=== PATIENT | female | born 1995 | race Caucasian/White ===

== ENCOUNTER 2016-09-10 10:52 | Emergency (ER) | payer OTHER ==
[2016-09-10 13:09] VITALS: BP 89/68
--- NOTE | 2016-09-10 13:26 | UC ---
UC General HPI - HPI Summary HPI Summary: patient has body aches, chills and cough, overall malaise for 5 days - History of Current Complaint Chief Complaint: UCRespiratory Stated Complaint: COUGH, BODY ACHES Time Seen by Provider: 09/10/16 13:10 Hx Obtained From: Patient Onset/Duration: Sudden Onset, Lasting Days Timing: Constant Onset Severity: Mild Current Severity: Moderate Pain Intensity: 6 Associated Signs & Symptoms: Positive: Cough, Headache - Allergy/Home Medications Allergies/Adverse Reactions: Allergies Allergy/AdvReac Type Severity Reaction Status Date / Time No Known Allergies Allergy Verified 09/10/16 13:03 Home Medications: Home Medications Naproxen Sodium 220 mg PO ONCE PRN 09/10/16 [History Confirmed 09/10/16] PMH/Surg Hx/FS Hx/Imm Hx Previously Healthy: Yes Endocrine History Of: Denies: Diabetes GI/ History Of: Denies: Renal Disease - PT denies history of stones - Surgical History Surgical History: None - Family History Known Family History: Positive: None, Other - mother with arthritis Negative: Cardiac Disease, Hypertension, Diabetes - Social History Alcohol Use: None Substance Use Type: None Smoking Status (MU): Never Smoked Tobacco - Immunization History Most Recent Influenza Vaccination: not this season Review of Systems Constitutional: Chills, Fatigue Skin: Negative Eyes: Negative ENT: Sore Throat, Nasal Discharge Respiratory: Cough Cardiovascular: Negative Gastrointestinal: Negative Genitourinary: Negative Motor: Negative Musculoskeletal: Arthralgia, Myalgia Neurological: Headache Psychological: Negative All Other Systems Reviewed And Are Negative: Yes Physical Exam Triage Information Reviewed: Yes Appearance: Well-Nourished, Ill-Appearing, Pain Distress Vital Signs: Initial Vital Signs Temp 97.7 F 09/10/16 13:05 Pulse 110 09/10/16 13:05 Resp 18 09/10/16 13:05 BP 89/68 09/10/16 13:05 Pulse Ox 99 09/10/16 13:05 Vital Signs Reviewed: Yes Eye Exam: Normal Eyes: Positive: Conjunctiva Clear ENT Exam: Normal ENT: Positive: Pharyngeal erythema, Nasal congestion, Nasal drainage, TM red Dental Exam: Normal Neck exam: Normal Neck: Positive: Supple, Nontender, No Lymphadenopathy Respiratory: Positive: Chest non-tender, No respiratory distress, No accessory muscle use, Wheezing, Inspiration Cardiovascular Exam: Normal Cardiovascular: Positive: RRR, No Murmur, Pulses Normal Abdominal Exam: Normal Abdomen Description: Positive: Nontender, No Organomegaly, Soft Bowel Sounds: Positive: Present Musculoskeletal Exam: Normal Musculoskeletal: Positive: Strength Intact, ROM Intact, No Edema Neurological Exam: Normal Neurological: Positive: Alert, Muscle Tone Normal Psychological Exam: Normal Skin Exam: Normal Course/Dx - Course Course Of Treatment: hx obtained, exam performed, rapid flu obtained, positive, medications prescribed. - Differential Dx - Multi-Symptom Provider Diagnoses: influenza A. cough. myalgia Discharge - Discharge Plan Condition: Stable Disposition: HOME Patient Education Materials: Influenza (ED) Forms: *School Release, *Work Release Additional Instructions: Increase your fluid intake and get plenty of rest. take the medication as prescribed.
== END 2016-09-10 13:59 | disposition home or self-care (01) ==
LOC: UCCORT 10:52
DX: J10.1 Influenza due to other identified influenza virus with other respiratory manifestations (principal); R05 Cough
CPT/HCPCS: 87502; 99212; G0463

== ENCOUNTER 2016-09-16 14:40 | Emergency (ER) | payer OTHER ==
[2016-09-16 15:13] VITALS: BP 115/77
--- NOTE | 2016-09-16 15:56 | RAD ---
HISTORY: Cough, right rib pain COMPARISONS: February 09, 2016 VIEWS: 2: Frontal dual-energy and lateral views of the chest. FINDINGS: CARDIOMEDIASTINAL SILHOUETTE: The cardiomediastinal silhouette is normal. HANNAH: The hannah are normal. PLEURA: The costophrenic angles are sharp. No pleural abnormalities are noted. LUNG PARENCHYMA: The lungs are clear. ABDOMEN: The upper abdomen is clear. There is no subphrenic gas. BONES AND SOFT TISSUES: No bone or soft tissue abnormalities are noted. OTHER: None. IMPRESSION: NO ACTIVE CARDIOPULMONARY DISEASE.
--- NOTE | 2016-09-16 16:09 | UC ---
Respiratory Complaint HPI - HPI Summary HPI Summary: cough which is causing severe point tenderness right lower lateral ribcage. Cough will sometimes wake her at night. Hard to work due to coughing fits. Usually dry, sometimes coughs up phlegm. Did have influenza 6 days ago. No vomiting. No fevers. No body aches. Worried about the rib pain as far as a fracture or pneumonia. - History of Current Complaint Chief Complaint: UCAbdominalPain Stated Complaint: RIB PAIN Time Seen by Provider: 09/16/16 15:16 Hx Obtained From: Patient, Family/Minesweeping Officer Hx Last Menstrual Period: 09/11/16 ?: No Onset/Duration: Gradual Onset, Lasting Days - 6 Timing: Constant Severity Initially: Mild Severity Currently: Moderate Character: Sputum Description: - yellowish in AM Aggravating Factors: Exertion, Recumbent Position Alleviating Factors: Nothing Associated Signs And Symptoms: Positive: Pleuritic Chest Pain - right lateral ribcage. Negative: Dyspnea, Fever, Chills, Hemoptysis, Dizziness, URI, Nasal Congestion, Hoarseness, Sinus Discomfort - Risk Factors Pulmonary Embolism Risk Factors: Negative Cardiac Risk Factors: Negative Pseudomonas Risk Factors: Negative Tuberculosis Risk Factors: Negative - Allergies/Home Medications Allergies/Adverse Reactions: Allergies Allergy/AdvReac Type Severity Reaction Status Date / Time No Known Allergies Allergy Verified 09/16/16 15:13 PMH/Surg Hx/FS Hx/Imm Hx Previously Healthy: Yes Endocrine History Of: Denies: Diabetes GI/ History Of: Denies: Renal Disease - PT denies history of stones - Surgical History Surgical History: None - Family History Known Family History: Positive: None, Other - mother with arthritis Negative: Cardiac Disease, Hypertension, Diabetes - Social History Occupation: Employed Full-time Lives: With Family Alcohol Use: None Substance Use Type: None Smoking Status (MU): Never Smoked Tobacco - Immunization History Most Recent Influenza Vaccination: not this season Review of Systems Constitutional: Negative Skin: Negative Eyes: Negative ENT: Negative Respiratory: Cough, Other - pleuritic pain Cardiovascular: Negative Gastrointestinal: Negative Genitourinary: Negative Motor: Negative Neurovascular: Negative Musculoskeletal: Negative Neurological: Negative Psychological: Negative All Other Systems Reviewed And Are Negative: Yes Physical Exam Triage Information Reviewed: Yes Appearance: Well-Appearing, No Pain Distress, Well-Nourished, Thin Vital Signs: Initial Vital Signs Temp 98.0 F 09/16/16 15:07 Pulse 90 09/16/16 15:07 Resp 16 09/16/16 15:07 BP 115/77 09/16/16 15:07 Pulse Ox 96 09/16/16 15:07 Vital Signs Reviewed: Yes Eye Exam: Normal ENT Exam: Normal ENT: Positive: Pharynx normal, TMs normal. Negative: Tonsillar swelling, Tonsillar exudate, Trismus, Muffled/hoarse voice Neck exam: Normal Respiratory Exam: Normal Respiratory: Positive: Lungs clear, Normal breath sounds, No respiratory distress, No accessory muscle use, Other: - point tenderness right lateral lower ribcage. NO bruising or swelling. No crepitus Cardiovascular Exam: Normal Abdominal Exam: Normal Musculoskeletal Exam: Normal Neurological Exam: Normal Psychological Exam: Normal Skin Exam: Normal UC Diagnostic Evaluation - Laboratory O2 Sat by Pulse Oximetry: 96 Diagnostic Studies Comment: CXR normal Respiratory Course/Dx - Differential Dx/Diagnosis Provider Diagnoses: post-viral cough Discharge - Discharge Plan Condition: Stable Disposition: HOME Prescriptions: Benzonatate CAP* [Tessalon CAP*] 100 mg PO TID PRN #30 cap PRN Reason: Cough Patient Education Materials: Acute Cough (ED) Referrals: Wayne Feliz MD [Primary Care Provider] - Additional Instructions: You probably cracked a rib, or injured the area where the rib becomes cartilage. This will heal without any treatment. Try heat. You can also wrap the area with a rib belt or back brace, and that will help with pain. Icy Hot or Adrian Carbone rubs can be helpful. The Tessalon perles will help to suppress the cough a bit. The cough after influenza can drag on several weeks. It's only of concern if you start running a fever over 100.5, or vomiting, or generally feeling worse and worse as time goes on.
== END 2016-09-16 16:15 | disposition home or self-care (01) ==
LOC: UCCORT 14:40
DX: R05 Cough (principal)
CPT/HCPCS: 71020; 99211; G0463

== ENCOUNTER 2017-02-15 10:55 | Emergency (ER) | payer OTHER ==
--- NOTE | 2017-02-15 11:41 | UC ---
Abdominal Pain Female HPI - History of Current Complaint Chief Complaint: UCGeneralIllness Stated Complaint: ANXIETY OR POSSIBLE MEDICATION REACTION Time Seen by Provider: 02/15/17 11:31 Hx Obtained From: Patient Hx Last Menstrual Period: 01/23/17 Onset/Duration: Sudden Onset - nausea with some vomiting night and thursday morning. Diarrhea th and last night., Still Present - Very anxious. Trouble sleeping. Severity Initially: Moderate Severity Currently: Moderate Aggravating Factor(s): Food Alleviating Factor(s): Nothing Associated Signs and Symptoms: Positive: Dizzy, Nausea, Vomiting, Diarrhea. Negative: Diaphoresis, Fever - Risk Factors Ovarian Torsion Risk Factor: Reproductive Age Allergies/Adverse Reactions: Allergies Allergy/AdvReac Type Severity Reaction Status Date / Time No Known Allergies Allergy Verified 02/15/17 11:29 PMH/Surg Hx/FS Hx/Imm Hx Psychological History: Anxiety - Surgical History Surgical History: None - Family History Known Family History: Positive: Other - mother with arthritis and anxiety Negative: Cardiac Disease, Hypertension, Diabetes - Social History Occupation: Employed Full-time Lives: With Family Alcohol Use: None Substance Use Type: None Smoking Status (MU): Never Smoked Tobacco - Immunization History Most Recent Influenza Vaccination: not this season Review of Systems Respiratory: Shortness Of Breath - with panic attack last night. Gastrointestinal: Vomiting, Diarrhea Psychological: Anxious All Other Systems Reviewed And Are Negative: Yes Physical Exam Triage Information Reviewed: Yes Appearance: Well-Appearing, No Pain Distress, Well-Nourished Vital Signs: Initial Vital Signs Temp 99.1 F 02/15/17 11:30 Pulse 104 02/15/17 11:30 Resp 16 02/15/17 11:30 BP 116/84 02/15/17 11:30 Pulse Ox 98 02/15/17 11:30 Vital Signs Reviewed: Yes Eyes: Positive: Conjunctiva Clear ENT: Positive: Pharynx normal, TMs normal Neck exam: Normal Respiratory Exam: Normal Cardiovascular Exam: Normal Abdomen Description: Positive: Nontender, No Organomegaly, Soft Bowel Sounds: Positive: Present Musculoskeletal Exam: Normal Neurological Exam: Normal Psychological: Positive: Inconsolable - crying with anxiety, Other: - Anxious. Skin Exam: Normal Abd Pain Female Course/Dx - Differential Dx/Diagnosis Differential Diagnosis: Appendicitis, Constipation, Diverticulitis Provider Diagnoses: Acute viral enteritis. Anxiety, generalized Discharge - Discharge Plan Condition: Stable Disposition: HOME Prescriptions: Escitalopram (NF) [Lexapro 10 mg (NF)] 10 mg PO DAILY #30 tab OLANzapine TAB* [Zyprexa 2.5 MG TAB*] 2.5 mg PO BEDTIME #30 tab Ondansetron ODT TAB* [Zofran 4 MG Odt TAB*] 4 mg PO Q6H PRN #30 tab.odt PRN Reason: Nausea/Vomiting Patient Education Materials: Enteritis (ED), Ondansetron (By mouth), Anxiety ( ED), Escitalopram (By mouth), Olanzapine (By mouth) Forms: *Work Release Referrals: Wayne Feliz MD [Primary Care Provider] - 1 Week (Recheck on the anxiety and medication tolerance.)
[2017-02-15 12:22] VITALS: BP 116/84
== END 2017-02-15 12:28 | disposition home or self-care (01) ==
LOC: UCCORT 10:55
DX: F41.1 Generalized anxiety disorder (principal); A08.4 Viral intestinal infection, unspecified
CPT/HCPCS: 99212; G0463

== ENCOUNTER 2017-03-19 20:58 | Emergency (ER) | payer OTHER ==
[2017-03-19 21:13] VITALS: BP 107/71
--- NOTE | 2017-03-19 21:17 | UC ---
Respiratory Complaint HPI - HPI Summary HPI Summary: 22 YEAR OLD FEMALE PRESENTS WITH COMPLAINS OF COUGH. - History of Current Complaint Chief Complaint: UCRespiratory Stated Complaint: COUGH Time Seen by Provider: 03/19/17 21:14 Hx Obtained From: Patient Hx Last Menstrual Period: 03/19/17 Onset/Duration: Sudden Onset Severity Initially: Moderate Severity Currently: Moderate Pain Scale Used: 0-10 Numeric - 5 Character: Cough: Productive - Allergies/Home Medications Allergies/Adverse Reactions: Allergies Allergy/AdvReac Type Severity Reaction Status Date / Time No Known Allergies Allergy Verified 03/19/17 21:13 Home Medications: Home Medications Benzonatate CAP* [Tessalon 100 MG CAP*] 100 mg PO TID 03/19/17 [History Confirmed 03/19/17] PMH/Surg Hx/FS Hx/Imm Hx Previously Healthy: Yes - Surgical History Surgical History: None - Family History Known Family History: Positive: None, Other - mother with arthritis and anxiety Negative: Cardiac Disease, Hypertension, Diabetes - Social History Alcohol Use: None Substance Use Type: None Smoking Status (MU): Never Smoked Tobacco - Immunization History Most Recent Influenza Vaccination: not this season Review of Systems Constitutional: Negative Skin: Negative Eyes: Negative ENT: Sore Throat, Nasal Discharge, Sinus Congestion, Sinus Pain/Tenderness Respiratory: Negative Cardiovascular: Negative Gastrointestinal: Negative Genitourinary: Negative Motor: Negative Neurovascular: Negative Musculoskeletal: Negative Neurological: Negative Psychological: Negative All Other Systems Reviewed And Are Negative: Yes Physical Exam Triage Information Reviewed: Yes Vital Signs: Initial Vital Signs Temp 37.1 C 03/19/17 21:08 Pulse 86 03/19/17 21:08 Resp 16 03/19/17 21:08 BP 107/71 03/19/17 21:08 Pulse Ox 97 03/19/17 21:08 Eye Exam: Normal ENT: Positive: Pharyngeal erythema, Nasal congestion, Nasal drainage Dental Exam: Normal Neck exam: Normal Neck: Positive: 1 Respiratory Exam: Normal Cardiovascular Exam: Normal Abdominal Exam: Normal Musculoskeletal Exam: Normal Neurological Exam: Normal Psychological Exam: Normal Skin Exam: Normal UC Diagnostic Evaluation - Laboratory O2 Sat by Pulse Oximetry: 97 Respiratory Course/Dx - Differential Dx/Diagnosis Provider Diagnoses: ALLERGIC RHINNITIS. POST NASAL DRIP Discharge - Discharge Plan Condition: Stable Disposition: HOME Prescriptions: Amoxicillin PO (*) [Amoxicillin 500 MG CAP*] 500 mg PO TID #30 cap Benzonatate [TESSALON 200 MG CAP] 200 mg PO TID PRN #30 cap PRN Reason: Cough LoraTADine TAB(NF) [Claritin 10 MG TAB(NF)] 10 mg PO DAILY #30 tab guaiFENesin/CODIEN 100MG-10MG* [Robitussin AC 100Mg-10Mg*] 5 ml PO Q6H PRN #120 ml MDD 20 PRN Reason: Cough Patient Education Materials: Allergic Rhinitis (ED) Referrals: Chanelle Waite NP [Primary Care Provider] -
--- NOTE | 2017-03-19 21:52 | RAD ---
INDICATION: Cough. COMPARISON: Comparison is made with a prior chest x-ray study from September 16, 2016. TECHNIQUE: Dual-energy PA and lateral views of the chest were obtained. FINDINGS: The heart is within normal limits in size. Mediastinal and hilar contours appear within normal limits. The lungs are clear. No pleural effusion is present. IMPRESSION: NO EVIDENCE FOR ACTIVE CARDIOPULMONARY DISEASE.
[2017-03-19] MEDS ORDERED: LoraTADine TAB(NF) 10 MG TAB (AUTOSUB to CETIRIZINE) PO ONE (21:57)
[2017-03-19] MEDS ORDERED: guaiFENesin/CODIEN 100MG-10MG* 5 ML UDC PO ONE (21:57)
== END 2017-03-19 22:07 | disposition home or self-care (01) ==
LOC: UCCORT 20:58
DX: J30.9 Allergic rhinitis, unspecified (principal)
CPT/HCPCS: 71020; 99212; A9270-GY; G0463

== ENCOUNTER 2017-04-02 17:06 | Emergency (ER) | payer OTHER ==
[2017-04-02 17:11] VITALS: BP 125/76
[2017-04-02] MEDS ORDERED: Ketorolac INJ* 60 MG/2 ML VIAL IM ONE (17:20)
--- NOTE | 2017-04-02 17:47 | UC ---
Respiratory Complaint HPI - HPI Summary HPI Summary: right flank pain x 7 days paretic pain right side, increase pain with breathing and cough was seen 2 weeks ago for cough, cough is better, no fever, no chills, no sob - History of Current Complaint Chief Complaint: UCGeneralIllness Stated Complaint: SEVERE RIGHT SIDE PAIN Time Seen by Provider: 04/02/17 17:07 Hx Obtained From: Patient Hx Last Menstrual Period: 03/19/17 ?: No Onset/Duration: Gradual Onset, Lasting Days - 7, Still Present, Worse Since - today Severity Initially: Moderate Severity Currently: Severe Aggravating Factors: Deep Breaths Alleviating Factors: Nothing Associated Signs And Symptoms: Positive: Pleuritic Chest Pain. Negative: Fever , Chills, Wheezing, Hemoptysis, Dizziness, Calf Pain, Calf Swelling, Edema, URI , Nasal Congestion, Hoarseness, Sinus Discomfort - Allergies/Home Medications Allergies/Adverse Reactions: Allergies Allergy/AdvReac Type Severity Reaction Status Date / Time No Known Allergies Allergy Verified 04/02/17 17:11 Home Medications: Home Medications Cyclobenzaprine TAB* [Flexeril 10 MG TAB*] 10 mg PO BID PRN 04/02/17 [History Confirmed 04/02/17] Ibuprofen TAB* [Motrin TAB* 600 MG] 600 mg PO Q6H PRN 04/02/17 [History Confirmed 04/02/17] PMH/Surg Hx/FS Hx/Imm Hx Psychological History: Anxiety - Surgical History Surgical History: None - Family History Known Family History: Positive: None, Other - mother with arthritis and anxiety Negative: Cardiac Disease, Hypertension, Diabetes - Social History Alcohol Use: None Substance Use Type: None Smoking Status (MU): Never Smoked Tobacco - Immunization History Most Recent Influenza Vaccination: not this season Review of Systems Constitutional: Negative Skin: Negative Eyes: Negative ENT: Negative Respiratory: Negative Cardiovascular: Negative All Other Systems Reviewed And Are Negative: Yes Physical Exam Triage Information Reviewed: Yes Appearance: Well-Appearing, Well-Nourished, Pain Distress, Other: - pt. is crying due to pain Vital Signs: Initial Vital Signs Temp 99 F 04/02/17 17:06 Pulse 100 04/02/17 17:06 Resp 20 04/02/17 17:06 BP 125/76 04/02/17 17:06 Pulse Ox 100 08/31/17 17:06 Eyes: Positive: Conjunctiva Clear ENT: Positive: Normal ENT inspection, Hearing grossly normal, Pharynx normal Neck: Positive: Supple, Nontender, No Lymphadenopathy Respiratory: Positive: Chest non-tender, Lungs clear, Normal breath sounds Cardiovascular: Positive: No Murmur, Tachycardia Abdominal Exam: Normal Abdomen Description: Positive: Nontender, Soft. Negative: CVA Tenderness (R), CVA Tenderness (L), Distended, Guarding Bowel Sounds: Positive: Present UC Diagnostic Evaluation - Laboratory O2 Sat by Pulse Oximetry: 100 Respiratory Course/Dx - Differential Dx/Diagnosis Provider Diagnoses: pneumonia. pleurisy Discharge - Discharge Plan Condition: Stable Disposition: HOME Prescriptions: Levofloxacin TAB* [Levaquin TAB*] 500 mg PO DAILY #10 tab Naproxen [Naproxen 500 mg] 500 mg PO BID #20 tab Patient Education Materials: Pleurisy (ED), Pneumonia (ED) Referrals: Chanelle Waite, [employer] [Primary Care Provider] - 5 Days
--- NOTE | 2017-04-02 17:56 | RAD ---
Indication: Right flank pain. 2 views of the chest are reviewed and compared to previous exam dated March 19, 2017. No mediastinal shift is noted. Wedge-shaped deformity is noted in the periphery of the right upper lobe which was not present previously and this may represent pneumonia. IMPRESSION: Likely pneumonia in the right upper lobe.
== END 2017-04-02 18:10 | disposition home or self-care (01) ==
LOC: UCCORT 17:06
DX: J18.9 Pneumonia, unspecified organism (principal); R09.1 Pleurisy; F41.9 Anxiety disorder, unspecified
CPT/HCPCS: 71020; 96372; 99212; G0463; J1885

== ENCOUNTER 2017-04-19 07:05 | Emergency (ER) | payer OTHER ==
--- NOTE | 2017-04-19 08:30 | RAD ---
INDICATION: Cough, blood in sputum. COMPARISON: April 02, 2017 through February 08, 2017 radiographs. TECHNIQUE: Dual energy PA and routine lateral views of the chest were obtained. REPORT: Rounded region of airspace consolidation with suggestion of air bronchograms involving the superior segment of the RIGHT lower lobe versus posterior segment of the RIGHT upper lobe is increased in size compared with the April 02, 2017 exam and completely new compared with the March 19, 2017 exam. The lungs and pleural spaces are otherwise clear. Negative for pneumothorax. The heart, pulmonary vasculature, and mediastinal contours are unremarkable. IMPRESSION: The constellation of findings including completely new appearance of the RIGHT lung opacity compared with the March 19, 2017 exam is most consistent with rounded pneumonia. Radiographic follow-up to assess for resolution suggested. In absence of progressive improvement on follow-up radiographs following appropriate medical therapy would warrant contrast-enhanced CT for further assessment.
[2017-04-19] MEDS ORDERED: cefTRIAXone VIAL(*) 1,000 MG VIAL IM ONE (08:56)
[2017-04-19] MEDS ORDERED: Lidocaine 1% INJ* 10 MG/ML 30 ML SDV INJ ONE (08:56)
[2017-04-19] MEDS ORDERED: Lidocaine 1% MPF* 2 ML VIAL ONE (09:08)
[2017-04-19 10:13] VITALS: BP 126/70
--- NOTE | 2017-04-19 10:25 | UC ---
Respiratory Complaint HPI - HPI Summary HPI Summary: pt with complicated recent past medical hx p/w with coumplaint of cough with bloody sputum. p/t 09/19, pt had no significant pmh except for anxiety and depression. in 09/19 pt had both flu and a bout of gastroenteritis. she appeared to recover well from both. then in 03/19 pt developed a cough. pt was seen for cough and sinpt us sx. dx was allergic rhinnitis and post nasal drip. she was tx with amoxicillin, claritin and guaifenesin. on 04/02 pt returned with c/o pleuritic cp and was found ro have pleurisy and pna for which she was tx with levaquin. she finished the course of abx and seemed to be improving. however pt has had lingering cough and congestion. this morning as pt was coughing, she brought up bloody sputum and is concerned that she has pna again. she is very anxious about her health. - History of Current Complaint Chief Complaint: UCRespiratory Stated Complaint: COUGH Time Seen by Provider: 04/19/17 07:15 Hx Obtained From: Patient Hx Last Menstrual Period: 04/16/17 ?: No Onset/Duration: Gradual Onset, Lasting Weeks, Worse Since - this morning Severity Initially: Moderate Severity Currently: Moderate Pain Intensity: 0 Pain Scale Used: 0-10 Numeric Character: Cough: Productive, Sputum Description: - yellow, bloody Aggravating Factors: Allergens, Exertion, Deep Breaths Alleviating Factors: Nothing Associated Signs And Symptoms: Positive: Hemoptysis, Nasal Congestion. Negative : Dyspnea, Fever, Chills, Pleuritic Chest Pain, Wheezing, Dizziness, Calf Pain, Calf Swelling, Edema, Hoarseness, Sinus Discomfort Related History: Seasonal Allergies - Allergies/Home Medications Allergies/Adverse Reactions: Allergies Allergy/AdvReac Type Severity Reaction Status Date / Time No Known Allergies Allergy Verified 04/23/17 18:31 Home Medications: Home Medications Naproxen [Naproxen 500 mg] 500 mg PO BID PRN 04/19/17 [History Confirmed ] PMH/Surg Hx/FS Hx/Imm Hx Previously Healthy: No - pt has been ill off and on since 09/19 Respiratory History: Pneumonia Psychological History: Anxiety - Surgical History Surgical History: None - Family History Known Family History: Positive: None, Other - mother with arthritis and anxiety Negative: Cardiac Disease, Hypertension, Diabetes - Social History Occupation: Employed Part-time, Student Lives: With Family Alcohol Use: None Substance Use Type: None Smoking Status (MU): Never Smoked Tobacco - Immunization History Most Recent Influenza Vaccination: Not the Season Review of Systems Constitutional: Negative Skin: Negative Eyes: Negative ENT: Nasal Discharge Respiratory: Cough Cardiovascular: Negative Gastrointestinal: Negative Genitourinary: Negative Motor: Negative Neurovascular: Negative Musculoskeletal: Negative Neurological: Negative Psychological: Anxious All Other Systems Reviewed And Are Negative: Yes Physical Exam Triage Information Reviewed: Yes Appearance: Well-Appearing, No Pain Distress, Well-Nourished Vital Signs: Initial Vital Signs Temp 99.1 F 04/19/17 07:18 Pulse 106 04/19/17 07:18 Resp 16 04/19/17 07:18 BP 123/89 04/19/17 07:18 Pulse Ox 100 04/19/17 07:18 Vital Signs Reviewed: Yes Eyes: Positive: Conjunctiva Clear. Negative: Discharge ENT: Positive: Hearing grossly normal, Pharynx normal, Nasal congestion, Nasal drainage, TMs normal. Negative: Tonsillar swelling, Tonsillar exudate, Trismus , Muffled/hoarse voice Dental Exam: Normal Neck exam: Normal Neck: Positive: Supple Respiratory: Positive: Lungs clear, Normal breath sounds, No respiratory distress, No accessory muscle use Cardiovascular: Positive: RRR, No Murmur Musculoskeletal Exam: Normal Neurological: Positive: Alert, Muscle Tone Normal Psychological: Positive: Age Appropriate Behavior, Consolable, Other: - pt very anxious, tearful. Skin Exam: Normal UC Diagnostic Evaluation - Laboratory O2 Sat by Pulse Oximetry: 100 Respiratory Course/Dx - Differential Dx/Diagnosis Differential Diagnosis/HQI/PQRI: Bronchitis, Lower Resp Infection, Sinusitis Provider Diagnoses: pna Discharge - Discharge Plan Condition: Stable Disposition: HOME Prescriptions: Cefdinir [Cefdinir 300 MG CAP] 300 mg PO BID #20 cap guaiFENesin ER TAB [Mucinex*] 600 mg PO BID PRN #1 box PRN Reason: Cough Patient Education Materials: Pneumonia (ED) Forms: *Work Release Referrals: Chanelle Waite NP [Primary Care Provider] - 1 Day Additional Instructions: ROCEPHIN: You have been given an injection of an antibiotic called Rocephin ( ceftriaxone). Sometimes the injection must be combined with antibiotic pills. For some infections, such as an uncomplicated ear infection, Rocephin provides all the antibiotic that's needed. The antibiotic will be in your body for about two days. For serious infections, we usually repeat doses of Rocephin daily. Side effects are very unusual following a shot. Women may develop vaginal yeast infections, and babies can get yeast (thrush) in the mouth following the use of antibiotics. Contact your physician if you have symptoms with this medication. Allergy to this antibiotic can result in hives, wheezing, faintness, or itching. If symptoms of allergy occur, call the doctor at once. CEPHALOSPORINS: An antibiotic of the cephalosporin class has been prescribed. This type of antibiotic covers a wide variety of infections, including those of the skin, lungs, middle ear, and urinary tract. This antibiotic is somewhat similar to the penicillin family. In rare cases , a person who is allergic to penicillin will also be allergic to this medication. If you have had a severe allergic reaction to penicillin, and have not taken this antibiotic since that time, notify your doctor. Antibiotics which cover many germs ("broad spectrum" antibiotics) are more likely to cause diarrhea or "yeast" infections. Women prone to vaginal yeast problems may suffer an attack after taking this antibiotic. In infants, oral thrush (white spots "stuck" on the cheek) or yeast diaper rash may result. See your doctor if these problems occur. Call the doctor at once if you develop hives, itching, shortness of breath , or lightheadedness. ANYTIME YOU TAKE AN ANTIBIOTIC, IT IS IMPORTANT TO REPLENISH THE BODY'S SUPPLY OF "GOOD BACTERIA." YOU CAN GET GOOD BACTERIA FROM HIGH QUALITY CULTURED FOODS SUCH LOCAL YOGURT, SOUR KRAUT, MAX DMITRIY, NATURALLY FERMENTED PICKLES AND PROBIOTIC DRINKS. YOU CAN ALSO GET GOOD BACTERIA FROM A PROBIOTIC SUPPLEMENT.
== END 2017-04-19 10:13 | disposition home or self-care (01) ==
LOC: UCCORT 07:05
DX: J18.9 Pneumonia, unspecified organism (principal); R09.81 Nasal congestion; R04.2 Hemoptysis; F41.9 Anxiety disorder, unspecified
CPT/HCPCS: 71020; 96372; 99212; G0463; J0696; J2001

== ENCOUNTER 2017-04-23 18:29 | Emergency (ER) | payer OTHER ==
[2017-04-23] MEDS ORDERED: Aspirin Low Dose CHEW TAB* 81 MG PO ONE (18:35)
[2017-04-23 19:39] LABS: Hematocrit 42 % (35-47); Hemoglobin 14.5 g/dl (12.0-16.0); Mean Corpuscular HGB Conc 34 g/dl (31-36); Mean Corpuscular Hemoglobin 31 pg (27-31); Mean Corpuscular Volume 90 fL (80-97); Mean Platelet Volume 7 um3 (7.4-10.4); Red Cell Distribution Width 12 % (10.5-15); White Blood Count 10.8 10^3/ul (3.5-10.8)
[2017-04-23] MEDS ORDERED: LORazepam INJ* 2 MG/ML 1 ML VIAL IV PUSH ONE (19:55)
[2017-04-23 19:57] LABS: Albumin 3.9 g/dL (3.2-5.2); BUN/Creatinine Ratio 15.7 (8-20); Calcium 9.6 mg/dL (8.6-10.3); EGFR African American 133.4 (>60); EGFR Non-African American 103.7 (>60); Globulin 3.6 g/dL (2-4); Potassium 3.4 mmol/L (3.5-5.0); Total Bilirubin 0.6 mg/dL (0.2-1.0); Total Protein 7.5 g/dL (6.4-8.9)
[2017-04-23] MEDS ORDERED: Iohexol 350* (CONTRAST) 500 ML MDV IV ONE (20:39)
[2017-04-23] MEDS ORDERED: diPHENhydraMINE PO* 50 MG PO ONE (20:50)
[2017-04-23] MEDS ORDERED: LORazepam TAB(*) 1 MG PO ONE (20:50)
--- NOTE | 2017-04-23 22:07 | RAD ---
INDICATION: Shortness of breath with productive cough x3 weeks. COMPARISON: Relevant recent imaging includes a VQ scan from today that yielded intermittent probability for pulmonary embolism. CT the chest with contrast dated April 22, 2017. TECHNIQUE: Axial source images were acquired following the administration of 50 AML Omnipaque [address] angiographic technique. Coronal and sagittal reconstructed images were constructed and reviewed. FINDINGS: There there are no filling defects in the pulmonary arteries to indicate acute pulmonary embolic disease. Similar to the previous day chest CT there is a pleural-based density along the posterior lateral margin of the right upper lobe measuring 2.5 x 2.3 x 2.9 cm (axial image 95 and sagittal image 35). More superiorly there is a 6 mm nodule along the posterior aspect of the right upper lobe. Immediately adjacent to the posterior aspect of the hilum there is a 1 cm density in the superior most portion of the right lower lobe (axial image 98). At the right hilum there is an asymmetric top normal lymph node measuring 9 mm in short axis diameter. Otherwise there is no mediastinal lymphadenopathy. The heart is normal in size. There is no evidence of pericardial effusion. There is no evidence of aortic aneurysm or dissection. The visualized osseous structures appear normal. Limited views of the upper abdomen show no abnormalities. IMPRESSION: 1. No CT of evidence of pulmonary embolism. 2. Again seen is a pleural-based density at the posterior lateral aspect of the right upper lobe. There are 2 additional separate densities measuring 1 cm or less in the right upper and superior portion of the right lower lobes. In addition there is an asymmetric top normal lymph node at the right hilum. According to the patient's age and infectious or inflammatory etiology is favored, perhaps multifocal septic emboli. Considered much less likely due to the patient's young age would be neoplasm.
[2017-04-23 23:08] VITALS: BP 102/69
--- NOTE | 2017-05-01 15:12 | ED ---
Mirela Munoz Alfonso scribed for Mich Barrett MD on 04/23/17 at 1846 . Complex/Multi-Sys Presentation - HPI Summary HPI Summary: This patient is a 22 year old F presenting [place] [facility] accompanied by russell referred by Dr. Amada Joseph (Senior Mechanical Designer) for a CTA after a consultation today. The patient rates the pain 0/10 in severity. Symptoms aggravated by nothing. Symptoms alleviated by nothing. Patient reports hematemesis (once a few weeks ago), recent illness (one month ago chest congestion and productive coughing (yellow phlegm) for which she completed a course of Levaquin). Patient denies SOB, and palpitations. She was taking a BCP which she recently stopped. She denies tobacco use. She denies recent travels. - History Of Current Complaint Chief Complaint: EDGeneral Time Seen by Provider: 04/23/17 18:35 Hx Obtained From: Patient, Other: - Dr. Amada Joseph Onset/Duration: Sudden Onset, Lasting Hours, Still Present Timing: Constant Aggravating Factor(s): Nothing Alleviating Factor(s): Nothing Associated Signs And Symptoms: Positive: Other - hematemesis (once a few weeks ago), recent illness (one month ago chest congestion and productive coughing ( yellow phlegm) for which she completed a course of Levaquin). Patient denies SOB , and palpitations - Allergies/Home Medications Allergies/Adverse Reactions: Allergies Allergy/AdvReac Type Severity Reaction Status Date / Time No Known Allergies Allergy Verified 04/23/17 18:31 PMH/Surg Hx/FS Hx/Imm Hx Endocrine/Hematology History: Denies: Hx Diabetes Cardiovascular History: Denies: Hx Hypertension History: Denies: Hx Dialysis, Hx Renal Disease Infectious Disease History: No Infectious Disease History: Denies: Traveled Outside the [place] in Last 30 Days - Family History Known Family History: Positive: Other - mother with arthritis and anxiety Negative: Cardiac Disease, Hypertension, Diabetes - Social History Alcohol Use: None Substance Use Type: Reports: None Smoking Status (MU): Never Smoked Tobacco Review of Systems Negative: Fever, Chills Negative: Erythema Negative: Sore Throat Negative: Palpitations, Chest Pain Positive: Other - recent illness (one month ago chest congestion and productive coughing (yellow phlegm) for which she completed a course of Levaquin). . Negative: Shortness Of Breath Positive: Vomiting - hematemesis . Negative: Abdominal Pain, Nausea Negative: dysuria, hematuria Negative: Myalgia, Edema Negative: Rash Neurological: Other - Negative dizziness All Other Systems Reviewed And Are Negative: Yes Physical Exam Triage Information Reviewed: Yes Vital Signs On Initial Exam: Initial Vitals Temp Pulse Resp BP Pulse Ox 99 F 94 20 98/71 99 04/23/17 18:31 04/23/17 18:31 04/23/17 18:31 04/23/17 18:31 04/23/17 18:31 Vital Signs Reviewed: Yes Appearance: Positive: Well-Appearing, No Pain Distress Skin: Positive: Warm, Dry Head/Face: Positive: Normal Head/Face Inspection Eyes: Positive: Conjunctiva Clear Neck: Positive: Other: - Musculoskeletal ROM normal neck. (-) JVD, (-) Stridor, (-) Tracheal deviation, (-) Cervical adenopathy Respiratory/Lung Sounds: Positive: Other - Effort normal. (-) Respiratory distress, (-) Wheezes, (-) Rales Cardiovascular: Positive: RRR, Other - Heart sounds normal; Intact distal pulses ; The pedal pulses are 2+ and symmetric. Radial pulses are 2+ and symmetric. (- ) Murmur Abdomen Description: Positive: Nontender, Soft, Other: - No rebound. Negative: Distended, Guarding Musculoskeletal: Negative: Edema Left, Edema Right Neurological: Positive: Alert, Oriented to Person Place, Time Psychiatric: Positive: Anxious, Other - Tearful Diagnostics - Vital Signs Vital Signs Temp Pulse Resp BP Pulse Ox 04/23/17 18:31 99 F 94 20 98/71 99 - Laboratory Result Diagrams: 04/23/17 19:32 04/23/17 19:32 Lab Statement: Any lab studies that have been ordered have been reviewed, and results considered in the medical decision making process. - CT CTA Chest CT Interpretation Completed By: Radiologist - 1. No CT of evidence of pulmonary embolism. 2. Again seen is a pleural-based density at the posterior lateral aspect of the right upper lobe. There are 2 additional separate densities measuring 1 cm or less in the right upper and superior portion of the right lower lobes. In addition there is an asymmetric top normal lymph node at the right hilum. According to the patient's age and infectious or inflammatory etiology is favored, perhaps multifocal septic emboli. Considered much less likely due to the patient's young age would be neoplasm. ED physician has reviewed this radiology report and agrees. - EKG 1847 Cardiac Rate: NL - BPM 92 EKG Rhythm: Sinus Rhythm EKG Interpretation: No STEMI Complex Multi-Symp Course/Dx Assessment/Plan: This patient is a 22 year old F presenting to [facility] accompanied by russell referred by Dr. Amada Joseph (Senior Mechanical Designer) for a CTA after a consultation today. The patient rates the pain 0/10 in severity. Symptoms aggravated by nothing. Symptoms alleviated by nothing. Patient reports hematemesis (once a few weeks ago), recent illness (one month ago chest congestion and productive coughing (yellow phlegm) for which she completed a course of Levaquin). Patient denies SOB, and palpitations. She was taking a BCP which she recently stopped. She denies tobacco use. She denies recent travels. An EKG reveals NSR. CTA chest reveals 1. No CT of evidence of pulmonary embolism. 2. Again seen is a pleural-based density at the posterior lateral aspect of the right. upper lobe. There are 2 additional separate densities measuring 1 cm or less in the right. upper and superior portion of the right lower lobes. In addition there is an asymmetric. top normal lymph node at the right hilum. According to the patient's age and infectious or. inflammatory etiology is favored, perhaps multifocal septic emboli. Considered much less. likely due to the patient's young age would be neoplasm. ED physician has reviewed this radiology report and agrees. Patient will be discharged with follow up from PCP. The patient is agreeable with this plan. - Diagnoses Provider Diagnoses: Hemoptysis Discharge - Discharge Plan Condition: Stable Disposition: HOME Patient Education Materials: Hemoptysis (ED) Referrals: Roz Rodriguez MD [Primary Care Provider] - 3 Days Additional Instructions: RETURN TO THE EMERGENCY DEPARTMENT FOR CHANGING OR WORSENING SYMPTOMS. The documentation as recorded by the Mirela campbell Alfonso accurately reflects the service I personally performed and the decisions made by me, Mich Barrett MD.
== END 2017-04-23 23:10 | disposition home or self-care (01) ==
LOC: ED 18:29
DX: R04.2 Hemoptysis (principal); K92.0 Hematemesis
CPT/HCPCS: 36415; 71275; 80053; 85025; 96374; 99284; A9270-GY; J2060; Q9967

== ENCOUNTER 2017-07-11 18:56 | Emergency (ER) | payer OTHER ==
[2017-07-11 19:55] VITALS: BP 122/73
--- NOTE | 2017-07-11 21:06 | UC ---
Respiratory Complaint HPI - HPI Summary HPI Summary: complicated pneumonia and pleurisy in April 2017, still being followed by Dr. Joseph with upcoming visit next week; resolved with naproxen and levaquin. Today awoke with pain in the left upper chest, without fevery, dyspnea, tachycardia, malaise. Concerned that this is a new onset pleurisy. Pain does not vary with inspiration, is primarily in the left upper traps and rhomboid area. Kaylyn notes that she has taken to carrying her back pack on the left shoulder since recent tattoo. Does not have a cough of dyspnea. - History of Current Complaint Chief Complaint: UCChestPain Stated Complaint: CHEST PAIN, LEFT SIDE Time Seen by Provider: 07/11/17 20:58 Hx Obtained From: Patient, Family/Bilingual Account Manager - here with her manny Khan Last Menstrual Period: 04/16/17 Onset/Duration: Sudden Onset, Lasting Hours - 14 Timing: Intermittent Episodes Severity Initially: Moderate Severity Currently: Moderate Pain Intensity: 7 Pain Scale Used: 0-10 Numeric Aggravating Factors: Nothing Alleviating Factors: Other - took ibuprofen without relief. Associated Signs And Symptoms: Positive: Negative - Risk Factors Pulmonary Embolism Risk Factors: Negative Cardiac Risk Factors: Negative Pseudomonas Risk Factors: Negative Tuberculosis Risk Factors: Negative - Allergies/Home Medications Allergies/Adverse Reactions: Allergies Allergy/AdvReac Type Severity Reaction Status Date / Time No Known Allergies Allergy Verified 07/11/17 19:55 Home Medications: Home Medications Ibuprofen TAB* [Motrin TAB* 400 MG] 400 mg PO Q6H PRN 07/11/17 [History Confirmed 07/11/17] PMH/Surg Hx/FS Hx/Imm Hx Previously Healthy: Yes Respiratory History: Pneumonia - April 2017 - Surgical History Surgical History: Yes Surgery Procedure, Year, and Place: wisdom teeth - Family History Known Family History: Positive: None, Other - mother with arthritis and anxiety Negative: Cardiac Disease, Hypertension, Diabetes - Social History Occupation: Employed Full-time Alcohol Use: None Substance Use Type: None Smoking Status (MU): Never Smoked Tobacco - Immunization History Most Recent Influenza Vaccination: Not the Season Review of Systems Constitutional: Negative Skin: Negative Eyes: Negative ENT: Negative Respiratory: Negative Cardiovascular: Chest Pain - left upper chest Gastrointestinal: Negative Genitourinary: Negative Motor: Negative Neurovascular: Negative Musculoskeletal: Negative Neurological: Negative Psychological: Negative Is Patient Immunocompromised?: No All Other Systems Reviewed And Are Negative: Yes Physical Exam Triage Information Reviewed: Yes Appearance: Well-Appearing, Pain Distress - mild, Other: - anxious Vital Signs: Initial Vital Signs Temp 98.3 F 07/11/17 19:48 Pulse 81 07/11/17 19:48 Resp 16 07/11/17 19:48 BP 122/73 07/11/17 19:48 Pulse Ox 100 07/11/17 19:48 Vital Signs Reviewed: Yes Eyes: Positive: Conjunctiva Clear ENT: Positive: Pharynx normal, TMs normal Neck: Positive: Supple, Nontender, No Lymphadenopathy Respiratory: Positive: Lungs clear, Normal breath sounds, Other: - resonant percussion; no pleuritic breath sounds. Cardiovascular: Positive: RRR, No Murmur Abdomen Description: Positive: Nontender, No Organomegaly Musculoskeletal: Positive: Other: - tenderness left traps and rhomboid Neurological Exam: Normal Psychological Exam: Normal UC Diagnostic Evaluation - Laboratory O2 Sat by Pulse Oximetry: 100 Respiratory Course/Dx - Course Course Of Treatment: naproxen for chest wall pain; discussed no pleuritic sounds. Advised CXR would not necessarily show an early pneumonia after 12 hours. - Differential Dx/Diagnosis Provider Diagnoses: chest wall pain. Discharge - Discharge Plan Condition: Stable Disposition: HOME Prescriptions: Naproxen [Naproxen 500 mg] 500 mg PO BID #30 tab Patient Education Materials: Chest Wall Pain (ED) Referrals: Chanelle Waite NP [Primary Care Provider] - Additional Instructions: At present, the left upper back pain is more consistent with chest wall or pain originating in the musculature of the upper back. I suggest taking naproxen twice daily with food, and following up with Nel Waite early next week if it persists. You have a visit next week with Dr. Joseph.
[2017-07-11] MEDS ORDERED: Naproxen TAB* 250 MG PO ONE (21:18)
== END 2017-07-11 21:36 | disposition home or self-care (01) ==
LOC: UCCORT 18:56
DX: R07.89 Other chest pain (principal)
CPT/HCPCS: 99212; A9270-GY; G0463

== ENCOUNTER 2017-09-01 07:25 | Day surgery (SDC) | payer OTHER ==
--- NOTE | 2017-08-27 19:31 | HP ---
PREOPERATIVE HISTORY AND PHYSICAL: DATE OF SURGERY/ADMISSION: 09/01/17 DATE OF OFFICE VISIT/ENCOUNTER: 08/19/17 ATTENDING SURGEON: Arminda Villalobos MD * (DICTATED BY ANDIE REBOLLAR) PROCEDURE: Left wrist de Quervain's release. CHIEF COMPLAINT: Left wrist pain. HISTORY OF PRESENT ILLNESS: This is a 22-year-old female, who complains of pain in her left wrist for several months now. She does not recall any specific injury. It bothers her with twisting, lifting, and bending her wrist. She denies any associated numbness or tingling. She has received a cortisone injection in the past, which was helpful but it wore off. She also has been wearing a brace, which is only slightly helpful. She is interested in a more definitive treatment for this problem and has consented to proceed with surgical intervention in the form of left wrist de Quervain's release. PAST MEDICAL HISTORY: History of pneumonia in June 2017. PAST SURGICAL HISTORY: Arabi teeth extraction. CURRENT MEDICATIONS: 1. Claritin 10 mg daily p.r.n. 2. Vitamin C daily. ALLERGIES: No known drug allergies. FAMILY MEDICAL HISTORY: Noncontributory. 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 She denies tobacco use, recreational drug use, and does not drink alcohol. REVIEW OF SYSTEMS: General: Negative for fevers, chills, or night sweats. No known anesthesia problems. HEENT: Negative for headache, lightheadedness, or syncopal episodes. Integumentary: Negative for abrasions, lesions, or open wounds. Cardiothoracic: Negative for hypertension, chest pain, palpitations, or edema. Pulmonary: Negative for shortness of breath with exertion, chronic cough, or COPD. GI: Negative for nausea, vomiting, diarrhea, constipation, or GERD. : Negative for nocturia, urinary frequency, urgency, history of UTIs, or kidney problems. Musculoskeletal: Positive for current complaint. Negative for chronic or intermittent back pain. No history of fractures. Neurologic: Negative for paresthesias, numbness, history of seizures, stroke, or epilepsy. Endocrine: Negative for diabetes or thyroid issues. Hematologic: Negative for easy bruising, anemia, excessive bleeding, or history of DVT. Infectious Disease: Negative for history of MRSA, hepatitis C, or HIV. PHYSICAL EXAMINATION GENERAL: Well-developed, well-nourished, 22-year-old female in no acute distress. VITAL SIGNS: Height 5 feet 4 inches, weight 120 pounds. Pulse rate 108, blood pressure 106/70. HEENT: Normocephalic, atraumatic. Pupils are equal, round, and reactive to light and accommodation. Extraocular movements are intact. NECK: Supple. No palpable lymph nodes. Throat is clear. PULMONARY: Lungs are clear to auscultation bilaterally. No wheezes, rales, or rhonchi. CARDIOVASCULAR: Regular rate and rhythm. S1 and S2. No murmurs, rubs, or gallops. No edema. ABDOMEN: Positive bowel sounds, soft, nontender. NEUROLOGIC: Alert and oriented x3. Cranial nerves II through XII are intact. Sensation is intact to light touch. MUSCULOSKELETAL: On exam of the left wrist, there is no visible swelling or erythema. Skin is intact. She has tenderness to palpation at the first dorsal compartment. She has a positive Seng's test. She has good range of motion with flexion and extension and can make a full fist. Neurovascular function is intact. IMAGING STUDIES: Left wrist x-rays AP, lateral, and oblique appear normal. IMPRESSION: Left de Quervain's tenosynovitis. PLAN: The patient is scheduled to undergo left wrist de Quervain's release with Dr. Villalobos on 09/01/17. She will return to the office 10 days postop for followup and suture removal. A prescription for Ultracet was e-scribed to the patient's pharmacy for postoperative pain management. ANDIE REBOLLAR [id number]/[facility] #: [id number] K[facility] HEALTHIssa
[~2017-09-01 07:25] MED LIST: Buffered Lidocaine 0.9% SYRIN* 5 ML/SYR SYRINGE INTRADERM ONE; DiMENhydriNATE IV* 50 MG/ML VIAL IV PUSH PRN; Famotidine IV* 10 MG/ML 2 ML (20 mg) IV ONE; Lidocaine 1% INJ* 10 MG/ML 30 ML SDV ONE; Morphine INJ* 2 MG/ML 1 ML CARPUJECT IV PRN; Naloxone* 0.4 MG/ML 1 ML VIAL IV PRN; PROCHLORPERAZINE INJ 5 MG/ML 2 ML VIAL IV PRN; fentaNYL* 50 MCG/ML 2 ML VIAL (100 MCG VIAL) IV PRN; oxyCODONE/Acetamin 5/325 MG* TAB PO PRN
[2017-09-01] MEDS ORDERED: Famotidine IV* 10 MG/ML 2 ML (20 mg) ONE (07:35)
[2017-09-01] MEDS ORDERED: fentaNYL* 50 MCG/ML 2 ML VIAL (100 MCG VIAL) ONE (07:55)
[2017-09-01] MEDS ORDERED: Midazolam* 1 MG/ML 2 ML VIAL (2 MG) ONE (07:55)
[2017-09-01] MEDS ORDERED: KETAMINE HCL* 50 MG/ML 10 ML VIAL ONE (07:55)
[2017-09-01] MEDS ORDERED: Ketorolac INJ* 30 MG/ML 1 ML VIAL ONE (09:03)
[2017-09-01] MEDS ORDERED: Propofol* 10 MG/ML 20 ML BTL IV PUSH ONE (09:03)
[2017-09-01] MEDS ORDERED: Dexamethasone IV* 4 MG/ML 1 ML (4 MG) ONE (09:03)
[2017-09-01] MEDS ORDERED: Ondansetron INJ* 2 MG/ML VIAL ONE (09:03)
[2017-09-01] MEDS ORDERED: Lidocaine 2% PF * 5 ML VIAL ONE (09:03)
[2017-09-01 10:09] VITALS: BP 128/62
--- NOTE | 2017-09-02 00:34 | OP ---
DATE OF OPERATION: 09/01/17 [facility] DATE OF : [birth year] SURGEON: Arminda Villalobos MD ELECTRON TUBE ASSEMBLER: ANDIE Hoffman ANESTHESIA: Local MAC. PRE-OP DIAGNOSIS: Left de Quervain's tenosynovitis. POST-OP DIAGNOSIS: Left de Quervain's tenosynovitis. OPERATIVE PROCEDURE: Left de Quervain's release. ESTIMATED BLOOD LOSS: Zero. TOURNIQUET TIME: Approximately 10 minutes. INDICATIONS FOR PROCEDURE: Marielle is a 22-year-old female with painful range of motion on radial deviation in her left wrist. She has a positive Seng test. She presents for de Quervain's release. DESCRIPTION OF PROCEDURE: The patient was brought to the operating room, was given a sedation anesthetic and a local infiltration of 10 cc of 1% plain lidocaine on the radial aspect of her left wrist. The skin of her left hand and forearm was prepped and draped in the usual sterile fashion. The hand and forearm were exsanguinated and the tourniquet elevated to 250 mmHg. A longitudinal incision was made centered at the radial styloid. We dissected through the subcutaneous tissue bluntly. Branches of the radial sensory nerves were located and then retracted by the surgical supply assistant, Charley Iglesias. The first dorsal compartment was incised longitudinally, and the APL and EPB tendons were in separate compartments. They were both released completely and were in good condition. There was no tenosynovitis. The wound was irrigated and the skin edges reapproximated with 4-0 nylon suture. The wound was dressed with Xeroform, 4x4, Webril and an Javy wrap. The patient tolerated the procedure well and was brought to the recovery room in good condition. [id number]/CPS #: [id number] MTDD
== END 2017-09-01 10:10 | disposition home or self-care (01) ==
LOC: OREAST 07:25
PROVIDERS: ATTEND Orthopaedic Surgery
DX: M65.4 Radial styloid tenosynovitis [de Quervain] (principal)
CPT/HCPCS: 81025; J1100; J1885; J2250; J2405; J2704; J3010

== ENCOUNTER 2017-09-06 09:06 | Emergency (ER) | payer SELFPAY ==
--- OUTSIDE RECORDS SUMMARY | 2017-09-06 10:27 | XMS REPORT ---
:1995 External Reference #:[id number] Author Organization [facility] Address [address] [address] Phone [phone] Care Team Providers Name Role Phone Roz Rodriguez MD Primary Care Physician Unavailable Payers Type Date Identification Numbers Payment Provider Subscriber Commercial Policy Number: [id number] [employer] Nancy Marielle French PayID: [id number] [address] [address] [place] [address] Problems Date Description Provider Status Onset: 02/21/2017 Generalized anxiety disorder Chanelle Waite N.P. Active Onset: 04/23/2017 Pneumonia Amada Joseph MD Active Family History Date Family Member(s) Problem(s) Comments Father Unknown Mother Arthritis Mother Osteoporosis Siblings Several 2 older brothers and 1 younger sister, 1 brother has tuberculosis. Social History Type Date Description Comments Marital Status enaged - planning on 03/2018 Lives With Male Partner Occupation Works at [employer] in [place] and goes to [employer] Cigarette Use Never Smoked Cigarettes ETOH Use Rarely consumes alcohol 1-2x/yr Smoking Patient has never smoked Recreational Drug Use Never Used Drugs Daily Caffeine Consumes on average 1 cup of 1-2 per week hot tea per day Exercise Type/Frequency Exercises regularly 1 hr 2x weekly - yoga Exercise Type/Frequency Exercises sporadically Allergies, Adverse Reactions, Alerts Date Description Reaction Status Severity Comments 08/19/2016 NKDA active Medications Medication Date Status Form Strength Qnty SIG Indications Ordering Provider Tramadol 08/19/ Active Tablets 37.5-325m 15tab 1 tab by Arminda Hydrochloride/Javy 2018 g s mouth Villalobos, taminophen every 4-6 M.D. hours as needed pain Do not take prior to surgery Claritin 05/14/ Active Tablets 10mg 30tab once Ronak 2016 s daily as ANDREAS Silva needed Fluconazole 07/21/ Hx Tablets 150mg 2tabs one by Roz 2017 - mouth december Michael, 07/28/ repeat in M.D. 2017 3 days if needed Fluconazole 05/21/ Hx Tablets 150mg 2tabs 6one by Chanelle 2017 - mouth december Varn, N.P. 05/27/ repeat in 2017 3 days as needed Clindamycin HCL 04/23/ Hx Capsules 150mg 42cap 1 capsule J18.9 Amada 2017 - s by mouth MD Jake 05/14/ every 6 2016 hrs Benzonatate 04/09/ Hx Capsules 100mg 30cap take one J18.9 Ronak 2016 - s or two ANDREAS Silva 04/30/ capsules 2017 every 8 hours as needed for cough. Tramadol HCL 04/03/ Hx Tablets 50mg 42tab 1-2 J18.9 Ronak 2016 - s tablets ANDREAS Silva 04/11/ every 8 2017 hours as needed for pain. Hydroxyzine 02/19/ Hx Capsules 25mg 30cap one by F41.1 Chanelle Pamoate 2016 - s mouth Varn, N.P. 04/03/ every 8 2016 hours as needed for anxiety Tessalon Perles 08/21/ Hx Capsules 100mg 42cap 1 cap 3 Wayne 2016 - three [place], 02/19/ times M.D. 2017 Colcrys 08/19/ Hx Tablets 0.6mg 30tab take 1 M10.00 Wayne 2016 - s tabs [place], 02/19/ daily M.D. 2016 until pain is resolved Ortho Tri-Cyclen / Hx Tablets 0.18/0.21 1 by Unknown Lo 0000 - 5/0.25 mouth 04/30/ mg-25 mcg every day 2016 Levofloxacin / Hx Tablets 500mg Tam Card, 2016 Naproxen / Hx Tablets 500mg prn Kyaw 0000 - Alex, 2016 Fluconazole / Hx Tablets 150mg aTm Shelton MD 2016 Cyclobenzaprine / Hx Tablets 10mg Unknown HCL 2016 Ibuprofen / Hx Tablets 600mg Unknown 0000 - 2016 Olanzapine / Hx Tablets 2.5mg take 1 Unknown 0000 - tablet by 04/03/ mouth at 2017 bedtime Escitalopram / Hx Tablets 10mg take 1 Unknown Oxalate 0000 - tablet by mouth 2017 once daily Sertraline HCL / Hx Tablets 50mg take 1 Unknown 0000 - tablet by mouth 2016 once daily Cefdinir / Hx Capsules 300mg qd (began Unknown 0000 - on 04/19) 2016 Mucinex Not / Hx Tablets ER 600mg prn Unknown Taking 0000 - 12HR 2016 Medications Administered in Office Medication Date Status Form Strength Qnty SIG Indications Ordering Provider Emile Administered Injection Arminda 40MG Era Yoon Administered Injection Nurse Visit 017 A Vital Signs Date Vital Result Comment 08/19/2017 Height 64 inches 5'4" Weight 120.00 lb Heart Rate 108 /min Respiratory Rate 14 /min Body Temperature 97.9 F Pain Level 10 BMI (Body Mass Index) 20.6 kg/m2 07/22/2017 Height 64 inches 5'4" Weight 120.00 lb Heart Rate 76 /min BP Systolic Sitting 106 mmHg BP Diastolic Sitting 70 mmHg Respiratory Rate 14 /min O2 % BldC Oximetry 99 % BMI (Body Mass Index) 20.6 kg/m2 06/10/2017 Weight 115.50 lb Heart Rate 104 /min BP Systolic 106 mmHg BP Diastolic 60 mmHg Body Temperature 98.8 F O2 % BldC Oximetry 99 % 06/04/2017 Height 54 inches 4'6" Weight 115.00 lb Heart Rate 88 /min BP Systolic Sitting 110 mmHg BP Diastolic Sitting 70 mmHg Respiratory Rate 14 /min O2 % BldC Oximetry 98 % BMI (Body Mass Index) 27.7 kg/m2 05/14/2017 Heart Rate 98 /min BP Systolic 100 mmHg BP Diastolic 60 mmHg Body Temperature 99.0 F O2 % BldC Oximetry 97 % 05/06/2017 Weight 109.50 lb Heart Rate 82 /min BP Systolic 106 mmHg BP Diastolic 62 mmHg Body Temperature 97.8 F O2 % BldC Oximetry 98 % 04/30/2017 Height 64.5 inches 5'4.50" Weight 111.38 lb Heart Rate 76 /min BP Systolic Sitting 120 mmHg BP Diastolic Sitting 76 mmHg Respiratory Rate 14 /min O2 % BldC Oximetry 98 % On Ra BMI (Body Mass Index) 18.8 kg/m2 04/30/2017 Height 64 inches 5'4" Weight 112.00 lb Heart Rate 68 /min BP Systolic 110 mmHg BP Diastolic 66 mmHg Respiratory Rate 16 /min Body Temperature 96.8 F Pain Level 2 BMI (Body Mass Index) 19.2 kg/m2 04/27/2017 Weight 112.00 lb Heart Rate 90 /min BP Systolic 98 mmHg BP Diastolic 62 mmHg Body Temperature 99.6 F O2 % BldC Oximetry 99 % 04/23/2017 Height 64.5 inches 5'4.50" Weight 111.00 lb Heart Rate 92 /min BP Systolic Sitting 118 mmHg BP Diastolic Sitting 82 mmHg Respiratory Rate 14 /min O2 % BldC Oximetry 99 % BMI (Body Mass Index) 18.8 kg/m2 Neck Circumference in inches 13.5 04/20/2017 Weight 112.75 lb Heart Rate 92 /min BP Systolic 107 mmHg BP Diastolic 70 mmHg Body Temperature 99.5 F O2 % BldC Oximetry 97 % 04/09/2017 Weight 114.75 lb Heart Rate 95 /min BP Systolic 118 mmHg BP Diastolic 78 mmHg Body Temperature 97.6 F O2 % BldC Oximetry 97 % 04/03/2017 Heart Rate 83 /min BP Systolic Sitting 96 mmHg BP Diastolic Sitting 72 mmHg Body Temperature 98.0 F O2 % BldC Oximetry 97 % 02/19/2017 Weight 114.00 lb Heart Rate 68 /min BP Systolic Sitting 100 mmHg BP Diastolic Sitting 60 mmHg Respiratory Rate 16 /min 09/19/2016 Height 63.75 inches 5'3.75" Weight 110.00 lb Heart Rate 92 /min BP Systolic 90 mmHg BP Diastolic 50 mmHg Body Temperature 98.5 F O2 % BldC Oximetry 99 % BMI (Body Mass Index) 19.0 kg/m2 08/19/2016 Height 63.75 inches 5'3.75" Weight 118.00 lb Heart Rate 83 /min BP Systolic Sitting 104 mmHg BP Diastolic Sitting 72 mmHg Body Temperature 97.7 F O2 % BldC Oximetry 97 % BMI (Body Mass Index) 20.4 kg/m2 Results Test Date Test Result H/L Range Note Laboratory test finding 04/30/2017 Angiotensin Converting 51 U/L 8 - 53 1 Enzyme Rheumatoid Factor <15 IU/mL <15 2 CBC Auto Diff 04/30/2017 White Blood Count 10.7 10^3/uL 3.5-10.8 Red Blood Count 4.87 10^6/uL 4.0-5.4 Hemoglobin 14.9 g/dL 12.0-16.0 Hematocrit 45 % 35-47 Mean Corpuscular Volume 92 fL 80-97 Mean Corpuscular Hemoglobin 31 pg 27-31 Mean Corpuscular HGB Conc 33 g/dL 31-36 Red Cell Distribution Width 13 % 10.5-15 Platelet Count 332 10^3/uL 150-450 Mean Platelet Volume 8 um3 7.4-10.4 Abs Neutrophils 8.3 10^3/uL High 1.5-7.7 Abs Lymphocytes 1.7 10^3/uL 1.0-4.8 Abs Monocytes 0.6 10^3/uL 0-0.8 Abs Eosinophils 0.1 10^3/uL 0-0.6 Abs Basophils 0.1 10^3/uL 0-0.2 Abs Nucleated RBC 0 10^3/uL Granulocyte % 77.7 % 38-83 Lymphocyte % 15.7 % Low 25-47 Monocyte % 5.3 % 1-9 Eosinophil % 0.5 % 0-6 Basophil % 0.8 % 0-2 Nucleated Red Blood Cells % 0 Laboratory test finding 04/30/2017 C Reactive Protein 2.25 mg/L < 5.00 3 Anca Panel For Vasculitis 04/30/2017 Myeloperoxidase AB < 0.2 U 4 Proteinase 3 AB < 0.2 U 5 Laboratory test finding 04/30/2017 Anti Nuclear Antibody 0.5 U 6 CBC Auto Diff 04/23/2017 White Blood Count 10.8 10^3/uL 3.5-10.8 Red Blood Count 4.70 10^6/uL 4.0-5.4 Hemoglobin 14.5 g/dL 12.0-16.0 Hematocrit 42 % 35-47 Mean Corpuscular Volume 90 fL 80-97 Mean Corpuscular Hemoglobin 31 pg 27-31 Mean Corpuscular HGB Conc 34 g/dL 31-36 Red Cell Distribution Width 12 % 10.5-15 Platelet Count 451 10^3/uL High 150-450 Mean Platelet Volume 7 um3 Low 7.4-10.4 Abs Neutrophils 7.9 10^3/uL High 1.5-7.7 Abs Lymphocytes 2.2 10^3/uL 1.0-4.8 Abs Monocytes 0.6 10^3/uL 0-0.8 Abs Eosinophils 0 10^3/uL 0-0.6 Abs Basophils 0.1 10^3/uL 0-0.2 Abs Nucleated RBC 0 10^3/uL Granulocyte % 73.1 % 38-83 Lymphocyte % 20.7 % Low 25-47 Monocyte % 5.5 % 1-9 Eosinophil % 0.2 % 0-6 Basophil % 0.5 % 0-2 Nucleated Red Blood Cells % 0 Comp Metabolic Panel 04/23/2017 Sodium 137 mmol/L 133-145 Potassium 3.4 mmol/L Low 3.5-5.0 Chloride 102 mmol/L 101-111 Co2 Carbon Dioxide 25 mmol/L 22-32 Anion Gap 10 mmol/L 2-11 Glucose 89 mg/dL 70-100 Blood Urea Nitrogen 11 mg/dL 6-24 Creatinine 0.70 mg/dL 0.51-0.95 BUN/Creatinine Ratio 15.7 8-20 Calcium 9.6 mg/dL 8.6-10.3 Total Protein 7.5 g/dL 6.4-8.9 Albumin 3.9 g/dL 3.2-5.2 Globulin 3.6 g/dL 2-4 Albumin/Globulin Ratio 1.1 1-3 Total Bilirubin 0.60 mg/dL 0.2-1.0 Alkaline Phosphatase 90 U/L 34-104 Alt 11 U/L 7-52 Ast 14 U/L 13-39 Egfr Non- 103.7 >60 Egfr 133.4 >60 7 Laboratory test finding 02/19/2017 Anti Nuclear Antibody 0.4 U 8 Cyclic Citrullinated Pep Igg <15.6 U 9 Lyme Disease Serology Negative Negative 10 Laboratory test finding 08/19/2016 Uric Acid 4.2 mg/dL 2.3-6.6 Rheumatoid Factor <15 IU/mL <15 11 1 Test Performed by: [place] [address] 2 Test Performed by: [place] [address] 3 Acute inflammation: >10.00 4 REFERENCE VALUE <0.4 (Negative) 5 REFERENCE VALUE <0.4 (Negative) Test Performed by: [facility] [address] [place] [address] 6 REFERENCE VALUE <=1.0 (Negative) Test Performed by: [address] [address] 7 Because ethnic data is not always readily available, this report includes an eGFR for both -Americans and non- Americans. The National Kidney Disease Education Program (NKDEP) does not endorse the use of the MDRD equation for patients that are not between the ages of 18 and 70, are , have extremes of body size, muscle mass, or nutritional status, or are non- or non-. According to the National Kidney Foundation, irrespective of diagnosis, the stage of the disease is based on the level of kidney function: Stage Description GFR(mL/min/1.73 m(2)) 1 Kidney damage with normal or decreased GFR 90 2 Kidney damage with mild decrease in GFR 60-89 3 Moderate decrease in GFR 30-59 4 Severe decrease in GFR 15-29 5 Kidney failure <15 (or dialysis) 8 REFERENCE VALUE <=1.0 (Negative) Test Performed by: [facility] [address] [place] [address] 9 REFERENCE VALUE <20.0 (Negative) Test Performed by: [address] [address] Serologic response to B. burgdorferi infection is not detected, but cannot rule out early infection during which low or undetectable antibody levels to B. burgdorferi may be present. If clinically indicated, a new serum specimen should be submitted in 7-14 days. Test Performed by: [facility] - [address] [address] Test Performed by: [address] [address] Grain Picker: Tahir Moreno II, M.D., Ph.D. Procedures Date CPT Code Description Status 04/30/2017 41029 Inject Tendon Sheath Or Ligament Aponeurosis Eg Plantar Completed Fascia Encounters Type Date Location Provider CPT E/M Dx Office Visit 07/22/2017 [facility] [address] J18.9 10:45a [facility] Office Visit 06/10/2017 [facility] Internal Medicine Chanelle Waite, N.P. [address] J06.9 10:20a [place] Office Visit 06/04/2017 [facility] [address] J18.9 1:00p [facility] Office Visit 05/14/2017 [facility] Internal Medicine Chanelle Waite, N.P. [address] M94.0 11:40a [place] Office Visit 05/06/2017 [facility] Internal Medicine Chanelle Waite, N.P. [address] H81.13 2:20p - [place] R51 F41.1 Office Visit 04/30/2017 1:00p [facility] [place] [address] J18.9 [facility] Office Visit 04/30/2017 11:00a [facility] Villalobos [address] M65.4 [facility] Office Visit 04/27/2017 1:00p [facility] Internal Medicine Chanelle Waite, N.P. [address] J18.9 [place] R19.7 F41.1 Office Visit 04/23/2017 2:45p [facility] [place] [address] J15.212 [facility] J18.9 J98.4 Office Visit 04/20/2017 1:40p [facility] Internal Medicine Chanelle Waite, N.P. [address] J18.9 [place] M65.4 Office Visit 04/09/2017 2:00p [facility] [place] [address] J18.9 - [place] Office Visit 04/03/2017 1:00p [facility] [place] [address] J18.9 - [place] Office Visit 02/19/2017 10:40a [facility] Internal Medicine Chanelle Waite, N.P. [address] F41.1 - [place] R19.7 M25.541 Office Visit 09/19/2016 2:00p [facility] Internal Medicine [facility], [address] S29.011A - Jarad Girard Office Visit 08/19/2016 10:00a [facility] Internal Medicine [facility], [address] M10.00 - Jarad Girard M79.644 Plan of Care Future Appointment(s):09/10/2017 10:00 am - Arminda Villalobos M.D. at [facility]09/17/2017 9:40 am - Chanelle Waite N.P. at [facility] Internal [facility]01/13/2018 10:30 am - Amada Joseph MD at [facility]12/17/2017 11:00 am - Chanelle Waite N.P. at [facility] Internal [facility]08/19/2017 - Arminda Villalobos M.D.M65.4 Radial styloid tenosynovitis [de Quervain]
[2017-09-06 10:32] VITALS: BP 124/63
--- NOTE | 2017-09-06 10:52 | UC ---
FLU HPI - HPI Summary HPI Summary: 3 weeks of worsening cough and chest congestion - History of Current Complaint Chief Complaint: UCRespiratory Stated Complaint: FLU LIKE SYMPTOMS Time Seen by Provider: 09/06/17 10:39 Hx Obtained From: Patient Hx Last Menstrual Period: 08/31/17 ?: No Onset/Duration: Gradual Onset, Lasting Weeks - 3, Still Present Severity Currently: Mild Severity Initially: Mild Pain Intensity: 2 Associated Signs & Symptoms: Positive: Myalgia, Cough, Nasal Congestion Related Hx: Possible Flu/Infectious Exposure - Allergy/Home Medications Allergies/Adverse Reactions: Allergies Allergy/AdvReac Type Severity Reaction Status Date / Time No Known Allergies Allergy Verified 09/06/17 10:28 Home Medications: Home Medications traMADol TAB* [Ultram*] 50 mg PO Q6HR PRN 09/06/17 [History Confirmed 09/06/17] PMH/Surg Hx/FS Hx/Imm Hx Previously Healthy: Yes - Surgical History Surgical History: Yes Surgery Procedure, Year, and Place: Left Dequervain's, 09/01/17, [facility] [place]; wisdom teeth - Family History Known Family History: Positive: None, Other - mother with arthritis and anxiety Negative: Cardiac Disease, Hypertension, Diabetes - Social History Occupation: Employed Full-time Lives: With Family Alcohol Use: None Substance Use Type: None Smoking Status (MU): Never Smoked Tobacco - Immunization History Most Recent Influenza Vaccination: Not the Season Review of Systems Constitutional: Fatigue Skin: Negative Eyes: Negative ENT: Sinus Congestion Respiratory: Cough Cardiovascular: Negative Gastrointestinal: Negative Genitourinary: Negative Motor: Negative Neurovascular: Negative Musculoskeletal: Negative Neurological: Negative Psychological: Negative Is Patient Immunocompromised?: No All Other Systems Reviewed And Are Negative: Yes Physical Exam Triage Information Reviewed: Yes Appearance: No Pain Distress, Well-Nourished, Ill-Appearing - mild Vital Signs: Initial Vital Signs Temp 98.4 F 09/06/17 10:27 Pulse 74 09/06/17 10:27 Resp 16 09/06/17 10:27 BP 124/63 09/06/17 10:27 Pulse Ox 99 09/06/17 10:27 Vital Signs Reviewed: Yes Eye Exam: Normal Eyes: Positive: Conjunctiva Clear ENT Exam: Normal ENT: Positive: Normal ENT inspection, Hearing grossly normal, Pharynx normal, Nasal congestion, TMs normal, Uvula midline. Negative: Tonsillar swelling, Tonsillar exudate, Trismus, Muffled voice, Hoarse voice, Dental tenderness, Sinus tenderness Dental Exam: Normal Neck exam: Normal Neck: Positive: Supple, Nontender Respiratory Exam: Normal Respiratory: Positive: Chest non-tender, Lungs clear, Normal breath sounds, No respiratory distress, No accessory muscle use Cardiovascular Exam: Normal Cardiovascular: Positive: RRR, No Murmur, Pulses Normal, Brisk Capillary Refill Musculoskeletal Exam: Normal Musculoskeletal: Positive: Strength Intact, ROM Intact, No Edema Neurological Exam: Normal Neurological: Positive: Alert, Muscle Tone Normal Psychological Exam: Normal Skin Exam: Normal Flu Course/Dx - Course Course Of Treatment: zithromax, mucinex, increase fluids follow with pcp - Differential Dx/Diagnosis Provider Diagnoses: Acute Bronchitis Discharge - Discharge Plan Condition: Stable Disposition: HOME Prescriptions: Azithromycin TAB* [Zithromax TAB (Z-TRIXIE) 250 mg #6 tabs] 2 tab PO .TODAY, THEN 1 DAILY #1 trixie Patient Education Materials: Guaifenesin (By mouth), Acute Bronchitis (ED) Referrals: Chanelle Waite 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
== END 2017-09-06 11:11 | disposition home or self-care (01) ==
LOC: UCCORT 09:06
DX: J20.9 Acute bronchitis, unspecified (principal)
CPT/HCPCS: 87502; 99212; G0463

== ENCOUNTER 2018-06-24 07:15 | Emergency (ER) | payer BC ==
--- OUTSIDE RECORDS SUMMARY | 2018-06-24 07:25 | XMS REPORT ---
:1995 External Reference #:[id number] Author Organization [employer] Address [address] [place] [id number] Phone [phone] Care Team Providers Name Role Phone Roz Rodriguez MD Primary Care Physician Unavailable Payers Type Date Identification Numbers Payment Provider Subscriber Commercial Expires: Policy Number: [id number] [employer] Marielle French 2017 Medicaid PayID: [id number] [address] [address] [place] [address] Medigap Part B Effective: Policy Number: BS Facets Marielle French 2017 [id number] PayID: [id number] [address] [address] [place] [address] Advance Directives Type Date Description Status Comment Other Directive 12/17/2017 Health Care Proxy Current and Verified Problems Date Description Provider Status Onset: 02/21/2017 Generalized anxiety disorder Chanelle Waite, N.P. Active Onset: 04/23/2017 Pneumonia Amada Joseph MD Active Family History Date Family Member(s) Problem(s) Comments General Diabetes General Heart Disease General Cancer General Rheumatoid Arthritis Father Unknown Mother Arthritis Mother Osteoporosis Siblings Several 2 older brothers and 1 younger sister, 1 brother has tuberculosis. Social History Type Date Description Comments Marital Status enaged - planning on 03/2018 Lives With Male Partner Occupation Works at [employer] ETOH Use Rarely consumes alcohol 1-2x/yr Smoking [...] Form Strength Qnty SIG Indications Ordering Provider Ibuprofen 12/17/ Active Tablets 200mg as needed Chanelle 2018 Varn, N.P. Hydroxyzine HCL 12/17/ Active Tablets 25mg 30tab 1 tablets F41.1 Chanelle 2018 s by mouth Varn, N.P. every 6-8 hours as needed for anxiety Amoxicillin/Clavu 05/11/ Hx Tablets 875-125mg 20tab one J01.90 Chanelle lanate Potassium 2017 - s tablet by Varn, N.P. mouth 2017 twice daily for 10 days Metronidazole 12/17/ Hx Gel 1% 55gm apply to L70.8 Chanelle 2017 - affectd Varn, N.P. 02/01/ 2017 once daily Fluconazole 09/17/ Hx Tablets 150mg 2tabs one by B37.3 Chanelle 2018 - mouth december Varn, N.P. 12/17/ repeat in 2017 3 days as needed Tramadol HCL 09/01/ Hx Tablets 50mg 15tab 1 tablet Arminda 2017 - s by mouth Villalobos, 10/01/ every 4-6 M.D. 2018 hours as needed pain. Tramadol 08/19/ Hx Tablets 37.5-325m 15tab 1 tab by Arminda Hydrochloride/Javy 2018 - g s mouth Villalobos, taminophen 09/01/ every 4-6 M.D. 2018 hours as needed pain Do not take prior to surgery Fluconazole 07/21/ Hx Tablets 150mg 2tabs one by Roz 2016 - mouth december Michael, 07/28/ repeat in M.D. 2016 3 days if needed Fluconazole 05/21/ Hx Tablets 150mg 2tabs 6one by Chanelle 2016 - mouth december Varn, N.P. 05/27/ repeat in 2016 3 days as needed Claritin 05/14/ Hx Tablets 10mg 30tab once Ronak 2016 - s daily as ANDREAS Silva 12/17/ needed 2017 Clindamycin HCL 04/23/ Hx Capsules 150mg 42cap 1 capsule J18.9 Amada 2016 - s by mouth MD Jake 05/14/ every 6 2017 hrs Benzonatate 04/09/ Hx Capsules 100mg 30cap take one J18.9 Ronak 2016 - s or two ANDREAS Silva 04/30/ capsules 2016 every 8 hours as needed for cough. Tramadol HCL 04/03/ Hx Tablets 50mg 42tab 1-2 J18.9 Ronak 2016 - s tablets ANDREAS Silva 04/11/ every 8 2017 hours as needed for pain. Hydroxyzine 02/19/ Hx Capsules 25mg 30cap one by F41.1 Chanelle Pamoate 2016 - s mouth Varn, N.P. 04/03/ every 8 2017 hours as needed for anxiety Tessalon Perles 08/21/ Hx Capsules 100mg 42cap 1 cap 3 Wayne 2016 - s three [place], 02/19/ times M.D. 2016 Colcrys 08/19/ Hx Tablets 0.6mg 30tab take 1 M10.00 Wayne 2016 - s tabs [place], 02/19/ daily M.D. 2016 until pain is resolved Ortho Tri-Cyclen / Hx Tablets 0.18/0.21 1 by Unknown Lo 0000 - 5/0.25 mouth 04/30/ mg-25 mcg every day 2016 Levofloxacin / Hx Tablets 500mg Tam Card, 04/20/ 2016 Naproxen / Hx Tablets 500mg prn Tam Card, 2016 Fluconazole / Hx Tablets 150mg Tam Shelton MD 2016 Cyclobenzaprine / Hx Tablets 10mg Unknown HCL 0000 - 2016 Ibuprofen / Hx Tablets 600mg Unknown 0000 - 2016 Olanzapine / Hx Tablets 2.5mg take 1 Unknown 0000 - tablet by 04/03/ mouth at 2017 bedtime Escitalopram / Hx Tablets 10mg take 1 Unknown Oxalate 0000 - tablet by mouth 2016 once daily Sertraline HCL / Hx Tablets 50mg take 1 Unknown 0000 - tablet by mouth 2016 once daily Cefdinir / Hx Capsules 300mg qd (began Unknown 0000 - on 04/19) 2016 Mucinex Not / Hx Tablets ER 600mg prn Unknown Taking 0000 - 12HR 2016 Medications Administered in Office Medication Date Status Form Strength Qnty SIG Indications Ordering Provider Depomedrol Administered Injection Arminda 40MG Guero Villalobos M.D. PPD Administered Injection Nurse Visit 017 A Vital Signs Date Vital Result Comment 06/01/2018 Height 64 inches 5'4" Weight 122.00 lb Heart Rate 77 /min BP Systolic 98 mmHg BP Diastolic 64 mmHg Body Temperature 97.9 F O2 % BldC Oximetry 100 % BMI (Body Mass Index) 20.9 kg/m2 05/11/2018 Height 64 inches 5'4" Weight 122.00 lb Heart Rate 90 /min BP Systolic 106 mmHg BP Diastolic 70 mmHg Body Temperature 98.7 F O2 % BldC Oximetry 98 % BMI (Body Mass Index) 20.9 kg/m2 03/11/2018 Height 64 inches 5'4" Weight 115.00 lb Heart Rate 66 /min BP Systolic 107 mmHg BP Diastolic 69 mmHg Body Temperature 97.6 F BMI (Body Mass Index) 19.7 kg/m2 01/13/2018 Height 64.75 inches 5'4.75" Weight 117.00 lb Heart Rate 66 /min BP Systolic Sitting 106 mmHg Lue regular cuff BP Diastolic Sitting 74 mmHg Lue regular cuff Respiratory Rate 20 /min O2 % BldC Oximetry 97 % BMI (Body Mass Index) 19.6 kg/m2 12/17/2017 Height 64.75 inches 5'4.75" Weight 117.50 lb Heart Rate 77 /min BP Systolic 100 mmHg BP Diastolic 62 mmHg Body Temperature 98.5 F O2 % BldC Oximetry 98 % BMI (Body Mass Index) 19.7 kg/m2 10/08/2017 Height 64 inches 5'4" Weight 115.00 lb Heart Rate 79 /min BP Systolic 116 mmHg BP Diastolic 75 mmHg Body Temperature 97.3 F BMI (Body Mass Index) 19.7 kg/m2 09/17/2017 Weight 116.00 lb Heart Rate 84 /min BP Systolic 118 mmHg BP Diastolic 70 mmHg Body Temperature 97.3 F O2 % BldC Oximetry 98 % 09/10/2017 Height 64 inches 5'4" Heart Rate 63 /min BP Systolic 108 mmHg BP Diastolic 68 mmHg Respiratory Rate 16 /min Body Temperature 97.0 F Pain Level 0 08/19/2017 Height 64 inches 5'4" Weight 120.00 [...] Test Date Test Result H/L Range Note Rapid Influenza A & B 09/06/2017 Influenza A Molecular NEGATIVE Negative 1 Molecular Influenza B Molecular NEGATIVE Negative Laboratory test finding 04/30/2017 Angiotensin Converting Enzyme 51 U/L 8 - 53 2 Rheumatoid Factor <15 IU/mL <15 3 Anca Panel For Vasculitis 04/30/2017 Myeloperoxidase AB < 0.2 U 4 Proteinase 3 AB < 0.2 U 5 Laboratory test finding 04/30/2017 Anti Nuclear Antibody 0.5 U 6 CBC Auto Diff 04/30/2017 White Blood Count [...] C Reactive Protein 2.25 mg/L < 5.00 7 CBC Auto Diff 04/23/2017 White Blood Count [...] Egfr Non- 103.7 >60 Egfr 133.4 >60 8 Laboratory test finding 02/19/2017 Anti Nuclear Antibody 0.4 U 9 Cyclic Citrullinated Pep Igg <15.6 U 10 Lyme Disease Serology Negative Negative 11 Laboratory test finding 08/19/2016 Uric Acid 4.2 mg/dL 2.3-6.6 Rheumatoid Factor <15 IU/mL <15 12 1 Dehairer: [id number] 2 Test Performed by: [address] [address] 3 Test Performed by: [address] [address] 4 REFERENCE VALUE <0.4 (Negative) 5 REFERENCE VALUE <0.4 (Negative) Test Performed by: [address] [address] 6 REFERENCE VALUE <=1.0 (Negative) Test Performed by: [address] [address] 7 Acute inflammation: >10.00 8 Because ethnic data is not always readily [...] 15-29 5 Kidney failure <15 (or dialysis) 9 REFERENCE VALUE <=1.0 (Negative) Test Performed by: [place] [address] 10 REFERENCE VALUE <20.0 (Negative) Test Performed by: [place] [address] 11 Serologic response to B. burgdorferi infection is not detected, but cannot rule out early infection during which low or undetectable antibody levels to B. burgdorferi may be present. If clinically indicated, a new serum specimen should be submitted in 7-14 days. Test Performed by: [address] [address] 12 Test Performed by: [place] [address] Horseradish Grinder: Tahir Moreno II, M.D., Ph.D. Procedures Date CPT Code Description Status 09/01/2017 05794 Dequervains-Tendon Sheath Incision/Extensor Completed Sheath,Wrist 09/01/2017 53747 Dequervains-Tendon Sheath Incision/Extensor Completed Sheath,Wrist 04/30/2017 84044 Inject Tendon Sheath Or Ligament Aponeurosis Eg Plantar Completed Fascia Encounters Type Date Location Provider CPT E/M Dx Office Visit 05/11/2018 [facility] Internal Medicine Chanelle Waite N.PJayna 83925 J01.90 3:40p - [place] M25.532 Office Visit 03/11/2018 3:15p Orthopedic Services Arminda Villalobos 268[address] M65.842 Of Hubert Castillo. Office Visit 02/18/2018 2:20p [facility] [place] [address] L70.0 [place] Office Visit 01/13/2018 10:30a Pulmon[place] [address] J18.9 Services Of [facility] Office Visit 12/17/2017 11:00a [facility] Internal Medicine Chanelle Waite, N.P. [address] Z00.00 - [place] F41.1 M79.644 L70.8 Z00.01 Office Visit 09/17/2017 9:40a [facility] Internal Medicine Chanelle Waite, N.P. [address] B37.3 - [place] Office Visit 08/19/2017 1:30p [facility]opedic Services Of Arminda Villalobos 10214 M65.4 Hubert Girard Office Visit 07/22/2017 10:45a Pul[place] [address] J18.9 Services Of [facility] Office Visit 06/10/2017 10:20a [facility] Internal Medicine Chanelle Waite, N.P. [address] J06.9 - [place] Office Visit 06/04/2017 1:00p Pul[place] [address] J18.9 Services Of [facility] Office Visit 05/14/2017 11:40a [facility] Internal Medicine Chanelle Waite, N.P. [address]303 M94.0 - [place] Office Visit 05/06/2017 2:20p [facility] Internal Medicine Chanelle Waite, N.P. 60815 H81.13 - [place] R51 F41.1 Office Visit 04/30/2017 11:00a [facility] Of Arminda Villalobos [address]806 M65.4 C.Faby Castillo. Office Visit 04/30/2017 1:00p Pul[place] [address] J18.9 Services Of [facility] Office Visit 04/27/2017 1:00p [facility] Internal Medicine Chanelle Waite, N.P. 16586 J18.9 - [place] R19.7 F41.1 Office Visit 04/23/2017 2:45p Pulmon[place] [address] J15.212 Services Of [facility] J18.9 J98.4 Office Visit 04/20/2017 1:40p [facility] Internal Medicine Chanelle Waite, N.P. [address]175 J18.9 - [place] M65.4 Office Visit 04/09/2017 2:00p [facility] [place] [address] J18.9 - [place] Office Visit 04/03/2017 1:00p [facility] [place] [address] J18.9 - [place] Office Visit 02/19/2017 10:40a [facility] Internal Medicine Chanelle Waite, N.P. [address]394 F41.1 - [place] R19.7 M25.541 Office Visit 09/19/2016 2:00p [facility] Internal Medicine [facility], [address] S29.011A - Jarad Girard Office Visit 08/19/2016 10:00a [facility] Internal Medicine [facility], [address] M10.00 - Jarad Girard M79.644 Plan of Care Future Appointment(s):12/20/2018 8:40 am - Chanelle Waite, N.P. at [facility] Internal [facility] - Ykmuigrsn94/30/2018 - Chanelle Waite N.P.J06.9 Acute upper respiratory infection, unspecifiedComments:You have a viral upper respiratory infection. For sinus congestion you may use saline nasal spray. You may find Afrin nasal spray helpful. Do not use this for more than 3 days in a row as you may get rebound sinus congestion. You may find gargling with salt water to help relieve your sore throat.If your symptoms do not improve, please give the office a call.
[2018-06-24 07:33] VITALS: BP 114/78
[2018-06-24] MEDS: predniSONE TAB* 20 MG PO ONE (07:59)
--- NOTE | 2018-06-24 08:01 | UC ---
Throat Pain/Nasal Nathaniel HPI - HPI Summary HPI Summary: Patient presents to urgent care with sore throat for 24 hours. Patient states she feels fullness in her lymph nodes. Patient has no drooling or difficulty with secretions. Patient denies trouble swallowing but states has painful swallowing. Patient was sinus congestion and postnasal drip. No ear pain. 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 Patient is not immunocompromised. Patient took Motrin yesterday but did not take anything today. Patient denies fevers or chills. No shortness of breath. Patient does have non productive cough. No body aches. No rashes. Patient's medications reviewed this visit. - History of Current Complaint Chief Complaint: UCRespiratory Stated Complaint: SORE THROAT Time Seen by Provider: 06/24/18 07:43 Hx Obtained From: Patient Hx Last Menstrual Period: 06/16/18 Onset/Duration: Gradual Onset Severity: Moderate Pain Intensity: 8 Pain Scale Used: 0-10 Numeric Cough: Nonproductive Associated Signs & Symptoms: Positive: Negative - Allergies/Home Medications Allergies/Adverse Reactions: Allergies Allergy/AdvReac Type Severity Reaction Status Date / Time No Known Allergies Allergy Verified 06/24/18 07:24 PMH/Surg Hx/FS Hx/Imm Hx Previously Healthy: Yes Psychological History: Anxiety - Surgical History Surgical History: Yes Surgery Procedure, Year, and Place: [facility], 09/01/17[place] [facility] [place] - Family History Known Family History: Positive: Other - mother with arthritis and anxiety Negative: Cardiac Disease, Hypertension, Diabetes - Social History Occupation: Employed Full-time Lives: With Family Alcohol Use: None Substance Use Type: None Smoking Status (MU): Never Smoked Tobacco - Immunization History Most Recent Influenza Vaccination: Not the 2017/2017 Season Review of Systems All Other Systems Reviewed And Are Negative: Yes Constitutional: Positive: Negative Skin: Positive: Negative Eyes: Positive: Negative ENT: Positive: Sore Throat, Nasal Discharge, Sinus Congestion Respiratory: Positive: Cough Physical Exam - Summary Physical Exam Summary: Vital Signs Reviewed: Yes A+Ox3, no distress, mild laryngitis Eyes: Conjunctiva Clear, JAMEY. EOM intact and full ENT: Hearing grossly normal TM x 2 clear, turbinates inflammed and congestd, + PND + lymphadenopathy, diffuse erythema, mmoist, uvula midline, no exudate, Neck: Positive: Supple, + cervical LA b/l Respiratory: Positive: No respiratory distress, No accessory muscle use + CTA throughout no w/r Cardiovascular: RRR nl s1, s2 no m/r CBT <2 sec abd soft + BS nt/nd no guarding, no distension Musculoskeletal Exam: YUSUF x 4 without difficulty Strength Intact, ROM Intact Neurological: Positive: Alert, + sensation throughout Psychological: Positive: Normal Response To Family Skin: Positive: no rash, no ecchymosis Triage Information Reviewed: Yes Vital Signs: Initial Vital Signs Temp 98.3 F 06/24/18 07:26 Pulse 101 06/24/18 07:26 Resp 15 06/24/18 07:26 BP 114/78 06/24/18 07:26 Pulse Ox 100 06/24/18 07:26 Throat Pain/Nasal Course/Dx - Course Course Of Treatment: Patient presents with sore throat for 24 hours. Patient with sinus congestion postnasal drip. No fevers or chills. No analgesia today. Patient did make chicken yesterday. Patient with a cough is not productive. Patient's without any fevers. No analgesia today. On exam patient with sinus congestion, postnasal drip, erythema and tonsillar edema. Patient does have palpable cervical lymphadenopathy. Patient otherwise well- appearing was stable vital signs. Strep is negative. We will prescribe prednisone. Recommend Motrin/Tylenol. Hydrate. Gargle salt water. Strict return precautions. Patient and mother comfortable in agreement with plan. - Differential Dx/Diagnosis Provider Diagnoses: pharyngitis Discharge - Sign-Out/Discharge Documenting (check all that apply): Patient Departure All imaging exams completed and their final reports reviewed: No Studies - Discharge Plan Condition: Stable Disposition: HOME Prescriptions: predniSONE TAB* [Deltasone 20 MG TAB*] 40 mg PO DAILY #8 tab Patient Education Materials: Pharyngitis (ED) Referrals: Chanelle Waite NP [Primary Care Provider] - Additional Instructions: - Okay to alternate ibuprofen (Advil, Motrin) 600mg and Tylenol 1000mg every 3 hours for pain. Take with food. Do NOT take for more than 4-5 days - Okay to gargle and spit warm salt water every 4 hours as needed for pain - Stay well hydrated - frequent sips of cold fluids will be soothing to your throat (popsicles, jello, ice cream, ice water). Avoid excess caffeine until your symptoms have resolved. - Do not share eating, drinking utensils. Throw out your toothbrush when your symptoms resolved -Throat infections are spread by oral secretions - do not share eating or drinking utensils until you symptoms are resolved. Clean items that may get your secretions such as cell phones, ipads, computer mouse, television remotes. Once you start to feel better, change your toothbrush and your pillow. - take prednisone daily as prescribed - humidify the air in the room where you sleep - boil water, run a hot steam shower, vaporizer, cups of water by heat register - Contact your doctor to arrange a follow-up appointment as needed - Billing Disposition and Condition Condition: STABLE Disposition: Home
== END 2018-06-24 08:13 | disposition home or self-care (01) ==
LOC: UCCORT 07:15
DX: J02.9 Acute pharyngitis, unspecified (principal)
CPT/HCPCS: 87651; 99212; G0463; J7512

== ENCOUNTER 2018-08-27 07:13 | Day surgery (SDC) | payer BC ==
--- NOTE | 2018-08-23 10:22 | HP ---
AMENDED REPORT NOW INCLUDES DESIGNATED COSIGNER PREOPERATIVE HISTORY AND PHYSICAL: DATE OF SURGERY/ADMISSION: 08/27/18 DATE OF OFFICE VISIT/ENCOUNTER: 08/12/18 ATTENDING SURGEON: Arminda Villalobos MD.* (DICTATED BY ANDIE REBOLLAR) PROCEDURE: Left wrist ganglion cyst excision. CHIEF COMPLAINT: Left wrist pain. HISTORY OF PRESENT ILLNESS: This is a 23-year-old female, who has had complaints of pain in her left wrist, particularly on the volar, ulnar aspect. She does not recall any injury. It has been ongoing since March 2018. An MRI showed a ganglion cyst in that area near the pisotriquetral joint and that is where the patient is complaining of pain. She has had physical therapy but that has not been helpful. She continues to have significant localized tenderness that seems to be getting worse. She is interested in pursuing surgical excision of the cyst at this time. PAST MEDICAL HISTORY: 1. Anxiety. 2. A miscarriage in July 2018. 3. History of pneumonia. PAST SURGICAL HISTORY: 1. [place] teeth extraction. 2. Left wrist de Quervain's release. CURRENT MEDICATIONS: 1. Hydroxyzine HCl 25 mg q. 6 to 8 hours p.r.n. anxiety. 2. Ibuprofen 200 mg p.r.n. ALLERGIES: No known drug allergies. FAMILY MEDICAL HISTORY: Diabetes, heart disease, cancer, rheumatoid arthritis. SOCIAL HISTORY: The patient works at the [employer] [employer] and also at [employer] in [place]. She is not a smoker. She denies recreational drug use and does not drink alcohol. REVIEW OF SYSTEMS: Negative for general, cephalic, cardiovascular, respiratory , GI, , other musculoskeletal, integumentary, endocrine symptoms. Neurologic : Positive for anxiety. Hematologic is negative. Infectious disease: Negative for MRSA, hepatitis C, HIV. PHYSICAL EXAMINATION GENERAL: Well-developed, well-nourished 23-year-old female, in no acute distress. VITAL SIGNS: Height 5 feet 4 inches, pulse rate 80, blood pressure 102/70, weight 125 pounds. HEENT: Normocephalic, atraumatic. Pupils are equal, round, and reactive to light and accommodation. Extraocular movements are intact. Throat is clear. NECK: Supple. No palpable lymph nodes. PULMONARY: Lungs are clear to auscultation bilaterally. No wheezes, rales or rhonchi. CARDIOVASCULAR: Regular rate and rhythm. S1, S2. No murmurs, rubs, or gallops. No edema. ABDOMEN: Positive bowel sounds. Soft, nontender. NEUROLOGICAL: Alert and oriented x3. Cranial nerves II through XII intact. Sensation is intact to light touch. MUSCULOSKELETAL: On exam of her left wrist and hand, there is tenderness over her pisiform and just distal to that, but no tenderness along the flexor tendons. She can fully flex and extend her fingers. There is no tenderness at the hook of the hamate. She can make a fist. Neurovascular function is intact. SKIN: Intact. IMAGING STUDIES: X-rays of the left wrist showed no bony abnormality. MRI of the left wrist shows a ganglion cyst at the pisiform. IMPRESSION: Left wrist/hand ganglion cyst. PLAN/RECOMMENDATIONS: The patient is scheduled to undergo a left wrist ganglion cyst excision with Dr. Villalobos on 08/27/18. She will return to the office 10 days postop for followup and suture removal. A prescription for Ultracet was e-scribed to the patient's pharmacy for postoperative pain management. ANDIE REBOLLAR [id number]/SCOTT #: [id number] ROSIO
[~2018-08-27 07:13] MED LIST changes: -Buffered Lidocaine 0.9% SYRIN* 5 ML/SYR SYRINGE INTRADERM ONE; +Buffered Lidocaine 1% SYRIN* 1 ML/SYRINGE INTRADERM ONE; +Dexamethasone IV* 4 MG/ML 1 ML (4 MG) IV SLOW PU ONE; -DiMENhydriNATE IV* 50 MG/ML VIAL IV PUSH PRN; +Lactated Ringers 1000 ML Bag* 1,000 ML IV SCH; -Lidocaine 1% INJ* 10 MG/ML 30 ML SDV ONE; -Morphine INJ* 2 MG/ML 1 ML CARPUJECT IV PRN; -Naloxone* 0.4 MG/ML 1 ML VIAL IV PRN; -PROCHLORPERAZINE INJ 5 MG/ML 2 ML VIAL IV PRN; -fentaNYL* 50 MCG/ML 2 ML VIAL (100 MCG VIAL) IV PRN; -oxyCODONE/Acetamin 5/325 MG* TAB PO PRN
[2018-08-27] MEDS ORDERED: Lidocaine 1% INJ* 10 MG/ML 30 ML SDV ONE (07:22)
[2018-08-27] MEDS ORDERED: Famotidine IV* 10 MG/ML 2 ML (20 mg) ONE (07:35)
[2018-08-27] MEDS ORDERED: Dexamethasone IV* 4 MG/ML 1 ML (4 MG) ONE (07:35)
[2018-08-27] MEDS ORDERED: Propofol* 10 MG/ML 20 ML BTL ONE (08:13)
[2018-08-27] MEDS ORDERED: Lidocaine 2% PF * 5 ML VIAL ONE (08:13)
[2018-08-27] MEDS ORDERED: fentaNYL* 50 MCG/ML 2 ML VIAL (100 MCG VIAL) ONE (08:13)
[2018-08-27] MEDS ORDERED: Midazolam* 1 MG/ML 2 ML VIAL (2 MG) ONE (08:13)
[2018-08-27] MEDS ORDERED: Ondansetron INJ* 2 MG/ML VIAL IV PRN (08:37)
[2018-08-27] MEDS ORDERED: oxyCODONE/Acetamin 5/325 MG* TAB PO PRN (08:37)
[2018-08-27] MEDS ORDERED: fentaNYL* 50 MCG/ML 2 ML VIAL (100 MCG VIAL) IV PRN (08:37)
[2018-08-27] MEDS ORDERED: Naloxone* 0.4 MG/ML 1 ML VIAL IV PRN (08:37)
[2018-08-27] MEDS ORDERED: HYDROcodone/ACETAMIN 5-325 MG* 1 TAB PO PRN (08:37)
[2018-08-27] MEDS ORDERED: Ketorolac INJ* 30 MG/ML 1 ML VIAL IV PRN (08:37)
[2018-08-27 09:52] VITALS: BP 112/71
--- NOTE | 2018-08-27 12:33 | OP ---
DATE OF OPERATION: 08/27/18 [facility] DATE OF : 89 SURGEON: Arminda Villalobos MD. COOK HELPER PASTRY: ANDIE Hoffman. ANESTHESIA: Local MAC. ESTIMATED BLOOD LOSS: Zero. TOURNIQUET TIME: About 20 minutes. PRE-OP DIAGNOSIS: Left wrist ganglion cyst. POST-OP DIAGNOSIS: Left wrist ganglion cyst. OPERATIVE PROCEDURE: Left wrist excision mass. INDICATIONS: Marielle was a 23-year-old female who on MRI has what appears to be a ganglion cyst at the pisotriquetral joint. She presents for removal as the mass is painful. DESCRIPTION OF PROCEDURE: The patient was brought to the operating room and was given a sedation anesthetic and a local infiltration with 10 cc of 1% plain lidocaine overlying her left wrist mass. Skin over left hand and forearm was prepped and draped in the usual sterile fashion. The hand and forearm were exsanguinated and the tourniquet elevated to 250 mmHg. A zigzag incision was made centered at the distal aspect of the pisiform, we dissected bluntly through the subcutaneous tissue. The ulnar neurovascular bundle was located and retracted by the manager surgical, Charley Iglesias. Between the pisiform, the triquetrum, and the hook of the hamate, there was a small mass that did not appear to be a ganglion cyst. It was excised and sent for pathology. The edges of the capsule in this area were cauterized with a Bovie, and then the wound was irrigated and the skin edges were reapproximated with 4-0 nylon suture. The wound was dressed with Xeroform, 4x4, Webril, and an Javy wrap. The patient tolerated the procedure and was brought to the Recovery in good condition. [id number]/[facility] #: [id number] [facility]
== END 2018-08-27 10:13 | disposition home or self-care (01) ==
LOC: OREAST 07:13
PROVIDERS: ATTEND Orthopaedic Surgery
DX: M67.432 Ganglion, left wrist (principal); F41.9 Anxiety disorder, unspecified
CPT/HCPCS: 81025; 88304; J1100; J2250; J2704; J3010

== ENCOUNTER 2018-09-11 09:22 | Emergency (ER) | payer BC ==
--- OUTSIDE RECORDS SUMMARY | 2018-09-11 10:17 | XMS REPORT | Continuity of Care Document ---
:1995 External Reference #:[id number] Author Name Penny Marte Care Team Providers Name Role Phone Roz Rodriguez MD Primary Care Physician Unavailable Payers Type Date Identification Numbers Payment Provider Subscriber Policy Number: [id number] [employer] Marielle French PayID: [id number] [address] [address] [place] [address] Effective: 2017 Policy Number: [id number] [employer] Marielle French Expires: 2018 PayID: [id number] [address] [address] [place] [address] Expires: 2017 Policy Number: [employer] Marielle French [id number] PayID: [id number] [address] [address] [place] [address] Advance Directives Type Date Description Status Comment [...] tuberculosis. Social History Type Date Description Comments Sex Unknown Marital Status enaged - planning on 03/2018 Lives With Male Partner Occupation Works at [employer] ETOH Use Rarely consumes alcohol 1-2x/yr Tobacco Use Start: Unknown Patient has never smoked Recreational Drug Use Never Used Drugs Smoking Status Reviewed: 08/12/18 Patient has never smoked Exercise Type/Frequency Exercises regularly 1 hr 2x weekly - yoga Exercise Type/Frequency Exercises sporadically Allergies, Adverse Reactions, Alerts Description No Known Drug Allergies Medications Medication Date Status Form Strength Qnty SIG Indications Ordering Provider Ibuprofen 12/17/ Active Tablets 200mg as needed Chanelle 2018 Varn, N.P. Hydroxyzine HCL 12/17/ Active Tablets 25mg 30tab 1 tablets F41.1 2017 s by mouth Varn, N.P. every 6-8 hours as needed for anxiety Tobramycin 06/30/ Hx Solution 0.3% 5ml 1 drop in H10.89 Chanelle 2017 - each eye Varn, N.P. 07/07/ every 2017 4hours x 7 days Amoxicillin/Clavu 06/30/ Hx Tablets 875-125mg 20tab one J01.90 Chanelle lanate Potassium 2018 - s tablet by Varn, N.P. mouth 2017 twice daily for 10 days Fluconazole 06/30/ Hx Tablets 150mg 3tabs one by J01.90 Chanelle 2017 - mouth Varn, N.P. 07/20/ every 3 2018 days for 3 doses Amoxicillin/Clavu 05/11/ Hx Tablets 875-125mg 20tab one J01.90 Chanelle lanate Potassium 2018 - s tablet by Varn, N.P. mouth 2017 twice daily for 10 days Metronidazole 12/17/ Hx Gel 1% 55gm apply to L70.8 Chanelle 2017 - affectd Varn, N.P. 02/01/ 2017 once daily Fluconazole 09/17/ Hx Tablets 150mg 2tabs one by B37.3 Chanelle 2017 - mouth december Varn, N.P. 12/17/ repeat in 2017 3 days as needed Tramadol HCL 09/01/ Hx Tablets 50mg 15tab 1 tablet Arminda 2018 - s by mouth Villalobos, 10/01/ every 4-6 M.D. 2018 hours as needed pain. Tramadol 08/19/ Hx Tablets 37.5-325m 15tab 1 tab by Arminda Hydrochloride/Javy 2018 - g s mouth Villalobos, taminophen 09/01/ every 4-6 M.D. 2018 hours as needed pain Do not take prior to surgery Fluconazole 07/21/ Hx Tablets 150mg 2tabs one by Roz 2016 - mouth december Cotton, 07/28/ repeat in M.D. 2016 3 days if needed Fluconazole 05/21/ Hx Tablets 150mg 2tabs 6one by Chanelle 2016 - mouth december Varn, N.P. 05/27/ repeat in 2017 3 days as needed Claritin 05/14/ Hx Tablets 10mg 30tab once Ronak 2016 - daily as ANDREAS Silva 12/17/ needed 2018 Clindamycin HCL 04/23/ Hx Capsules 150mg 42cap 1 capsule J18.9 Amada 2016 - s by mouth MD Jake 05/14/ every 6 2017 hrs Benzonatate 04/09/ Hx Capsules 100mg 30cap take one J18.9 Ronak 2016 - s or two ANDREAS Silva 04/30/ capsules 2016 every 8 hours as needed for cough. Tramadol HCL 04/03/ Hx Tablets 50mg 42tab 1-2 J18.9 Ronak 2016 - tablets ANDREAS Silva 04/11/ every 8 2017 hours as needed for pain. Hydroxyzine 02/19/ Hx Capsules 25mg 30cap one by F41.1 Chanelle Pamoate 2016 mouth Vardez, N.P. 04/03/ every 8 2016 hours as needed for anxiety Tessalon Perlmartinez 08/21/ Hx Capsules 100mg 42cap 1 cap 3 Wayne 2016 - s three [place], 02/19/ times M.D. 2017 Colcrys 08/19/ Hx Tablets 0.6mg 30tab take 1 M10.00 Wayne 2016 - s tabs Tray, 02/19/ daily M.D. 2016 until pain is resolved Ortho Tri-Cyclen / Hx Tablets 0.18/0.21 1 by Unknown Lo 0000 - 5/0.25 mouth 04/30/ mg-25 mcg every day 2016 Levofloxacin / Hx Tablets 500mg Zarrini, 0000 - Alex, 04/20/ 2016 Naproxen / Hx Tablets 500mg prn Zarrini, 0000 - Alex, 06/03/ 2016 Fluconazole / Hx Tablets 150mg Tam Shelton MD 2016 Cyclobenzaprine / Hx Tablets 10mg Unknown HCL - 2016 Ibuprofen / Hx Tablets 600mg [...] prn Unknown Taking 0000 - 12HR 2016 Vitamin / Hx Unknown 0000 - 2017 Medications Administered in Office Medication Date Status Form Strength Qnty SIG Indications Ordering Provider Depomedrol Administered Injection Arminda 40MG Era Yoon Administered Injection Nurse Visit 017 A Immunizations Description No Information Available Vital Signs Date Vital Result Comment 08/12/2018 3:10pm Height 64 inches 5'4" Heart Rate 80 /min BP Systolic Sitting 102 mmHg BP Diastolic Sitting 70 mmHg Pain Level 3 07/30/2018 11:43am Height 64 inches 5'4" Weight 125.12 lb Heart Rate 78 /min BP Systolic 107 mmHg BP Diastolic 68 mmHg Body Temperature 97.7 F O2 % BldC Oximetry 98 % BMI (Body Mass Index) 21.5 kg/m2 07/21/2018 3:28pm Height 64 inches 5'4" Weight 126.00 lb Heart Rate 91 /min BP Systolic Sitting 110 mmHg BP Diastolic Sitting 72 mmHg O2 % BldC Oximetry 100 % BMI (Body Mass Index) 21.6 kg/m2 07/14/2018 3:37pm Height 64 inches 5'4" Weight 126.00 lb Heart Rate 82 /min Respiratory Rate 15 /min Body Temperature 97.4 F Pain Level 3 BMI (Body Mass Index) 21.6 kg/m2 06/30/2018 11:46am Height 64 inches 5'4" Weight 126.00 lb Heart Rate 95 /min BP Systolic 114 mmHg BP Diastolic 77 mmHg Body Temperature 97.0 F O2 % BldC Oximetry 98 % BMI (Body Mass Index) 21.6 kg/m2 06/01/2018 2:17pm Height 64 inches 5'4" Weight 122.00 lb Heart Rate 77 /min BP Systolic 98 mmHg BP Diastolic 64 mmHg Body Temperature 97.9 F O2 % BldC Oximetry 100 % BMI (Body Mass Index) 20.9 kg/m2 05/11/2018 3:31pm Height 64 inches 5'4" Weight 122.00 lb Heart Rate 90 /min BP Systolic 106 mmHg BP Diastolic 70 mmHg Body Temperature 98.7 F O2 % BldC Oximetry 98 % BMI (Body Mass Index) 20.9 kg/m2 03/11/2018 3:09pm Height 64 inches 5'4" Weight 115.00 lb Heart Rate 66 /min BP Systolic 107 mmHg BP Diastolic 69 mmHg Body Temperature 97.6 F BMI (Body Mass Index) 19.7 kg/m2 01/13/2018 10:10am Height 64.75 inches 5'4.75" Weight 117.00 lb Heart Rate 66 /min BP Systolic Sitting 106 mmHg Lue regular cuff BP Diastolic Sitting 74 mmHg Lue regular cuff Respiratory Rate 20 /min O2 % BldC Oximetry 97 % BMI (Body Mass Index) 19.6 kg/m2 12/17/2017 10:49am Height 64.75 inches 5'4.75" Weight 117.50 lb Heart Rate 77 /min BP Systolic 100 mmHg BP Diastolic 62 mmHg Body Temperature 98.5 F O2 % BldC Oximetry 98 % BMI (Body Mass Index) 19.7 kg/m2 10/08/2017 9:23am Height 64 inches 5'4" Weight 115.00 lb Heart Rate 79 /min BP Systolic 116 mmHg BP Diastolic 75 mmHg Body Temperature 97.3 F BMI (Body Mass Index) 19.7 kg/m2 09/17/2017 9:29am Weight 116.00 lb Heart Rate 84 /min BP Systolic 118 mmHg BP Diastolic 70 mmHg Body Temperature 97.3 F O2 % BldC Oximetry 98 % 09/10/2017 9:40am Height 64 inches 5'4" Heart Rate 63 /min BP Systolic 108 mmHg BP Diastolic 68 mmHg Respiratory Rate 16 /min Body Temperature 97.0 F Pain Level 0 08/19/2017 1:27pm Height 64 inches 5'4" Weight 120.00 lb Heart Rate 108 /min Respiratory Rate 14 /min Body Temperature 97.9 F Pain Level 10 BMI (Body Mass Index) 20.6 kg/m2 07/22/2017 10:44am Height 64 inches 5'4" Weight 120.00 lb Heart Rate 76 /min BP Systolic Sitting 106 mmHg BP Diastolic Sitting 70 mmHg Respiratory Rate 14 /min O2 % BldC Oximetry 99 % BMI (Body Mass Index) 20.6 kg/m2 06/10/2017 9:59am Weight 115.50 lb Heart Rate 104 /min BP Systolic 106 mmHg BP Diastolic 60 mmHg Body Temperature 98.8 F O2 % BldC Oximetry 99 % 06/04/2017 12:45pm Height 54 inches 4'6" Weight 115.00 lb Heart Rate 88 /min BP Systolic Sitting 110 mmHg BP Diastolic Sitting 70 mmHg Respiratory Rate 14 /min O2 % BldC Oximetry 98 % BMI (Body Mass Index) 27.7 kg/m2 05/14/2017 11:35am Heart Rate 98 /min BP Systolic 100 mmHg BP Diastolic 60 mmHg Body Temperature 99.0 F O2 % BldC Oximetry 97 % 05/06/2017 1:57pm Weight 109.50 lb Heart Rate 82 /min BP Systolic 106 mmHg BP Diastolic 62 mmHg Body Temperature 97.8 F O2 % BldC Oximetry 98 % 04/30/2017 12:34pm Height 64.5 inches 5'4.50" Weight 111.38 lb Heart Rate 76 /min BP Systolic Sitting 120 mmHg BP Diastolic Sitting 76 mmHg Respiratory Rate 14 /min O2 % BldC Oximetry 98 % On Ra BMI (Body Mass Index) 18.8 kg/m2 04/30/2017 11:17am Height 64 inches 5'4" Weight 112.00 lb Heart Rate 68 /min BP Systolic 110 mmHg BP Diastolic 66 mmHg Respiratory Rate 16 /min Body Temperature 96.8 F Pain Level 2 BMI (Body Mass Index) 19.2 kg/m2 04/27/2017 12:56pm Weight 112.00 lb Heart Rate 90 /min BP Systolic 98 mmHg BP Diastolic 62 mmHg Body Temperature 99.6 F O2 % BldC Oximetry 99 % 04/23/2017 3:07pm Height 64.5 inches 5'4.50" Weight 111.00 lb Heart Rate 92 /min BP Systolic Sitting 118 mmHg BP Diastolic Sitting 82 mmHg Respiratory Rate 14 /min O2 % BldC Oximetry 99 % BMI (Body Mass Index) 18.8 kg/m2 Neck Circumference in inches 13.5 04/20/2017 1:28pm Weight 112.75 lb Heart Rate 92 /min BP Systolic 107 mmHg BP Diastolic 70 mmHg Body Temperature 99.5 F O2 % BldC Oximetry 97 % 04/09/2017 1:56pm Weight 114.75 lb Heart Rate 95 /min BP Systolic 118 mmHg BP Diastolic 78 mmHg Body Temperature 97.6 F O2 % BldC Oximetry 97 % 04/03/2017 1:06pm Heart Rate 83 /min BP Systolic Sitting 96 mmHg BP Diastolic Sitting 72 mmHg Body Temperature 98.0 F O2 % BldC Oximetry 97 % 02/19/2017 10:40am Weight 114.00 lb Heart Rate 68 /min BP Systolic Sitting 100 mmHg BP Diastolic Sitting 60 mmHg Respiratory Rate 16 /min 09/19/2016 1:49pm Height 63.75 inches 5'3.75" Weight 110.00 lb Heart Rate 92 /min BP Systolic 90 mmHg BP Diastolic 50 mmHg Body Temperature 98.5 F O2 % BldC Oximetry 99 % BMI (Body Mass Index) 19.0 kg/m2 08/19/2016 9:44am Height 63.75 inches 5'3.75" Weight 118.00 lb Heart Rate 83 /min BP Systolic Sitting 104 mmHg BP Diastolic Sitting 72 mmHg Body Temperature 97.7 F O2 % BldC Oximetry 97 % BMI (Body Mass Index) 20.4 kg/m2 Results Test Date Facility Test Result H/L Range Note Laboratory test 06/24/2018 [facility] Rapid Strep Negative Negative 1 finding [address] [facility] [place] [address] [phone] Rapid Influenza A 09/06/2017 [facility] Influenza A NEGATIVE Negative 2 & B Molecular [address] [facility] [place] [address] [phone] Influenza B Molecular NEGATIVE Negative Laboratory test 04/30/2017 [facility] C Reactive Protein 2.25 mg /L N < 5.00 [address] [place] [address] [phone] Anca Panel For 04/30/2017 [facility] Myeloperoxidase AB < 0.2 U N [address] [place] [address] [phone] Proteinase 3 AB < 0.2 U N 5 Laboratory test 04/30/2017 [facility] Anti Nuclear 0.5 U N [address] [place] [address] [place] [address] [phone] Laboratory test 04/30/2017 [facility] Angiotensin 51 U/L N 8 - 53 [address] [place] [address] [place] [address] [phone] Rheumatoid Factor <15 IU/mL N <15 8 CBC Auto Diff 04/30/2017 [facility] White Blood 10.7 10^3/uL N 3.5-10.[address] [place] [address] [phone] Red Blood Count 4.87 10^6/uL N 4.0-5.4 Hemoglobin 14.9 g/dL N 12.0-16.0 Hematocrit 45 % N 35-47 Mean Corpuscular Volume 92 fL N 80-97 Mean Corpuscular Hemoglobin 31 pg N 27-31 Mean Corpuscular HGB Conc 33 g/dL N 31-36 Red Cell Distribution Width 13 % N 10.5-15 Platelet Count 332 10^3/uL N 150-450 Mean Platelet Volume 8 um3 N 7.4-10.4 Abs Neutrophils 8.3 10^3/uL High 1.5-7.7 Abs Lymphocytes 1.7 10^3/uL N 1.0-4.8 Abs Monocytes 0.6 10^3/uL N 0-0.8 Abs Eosinophils 0.1 10^3/uL N 0-0.6 Abs Basophils 0.1 10^3/uL N 0-0.2 Abs Nucleated RBC 0 10^3/uL N Granulocyte % 77.7 % N 38-83 Lymphocyte % 15.7 % Low 25-47 Monocyte % 5.3 % N 1-9 Eosinophil % 0.5 % N 0-6 Basophil % 0.8 % N 0-2 Nucleated Red Blood Cells % 0 N CBC Auto Diff 04/23/2017 [facility] White Blood 10.8 10^3/uL N 3.5-10.[address] [place] [address] [phone] Red Blood Count 4.70 10^6/uL N 4.0-5.4 Hemoglobin 14.5 g/dL N 12.0-16.0 Hematocrit 42 % N 35-47 Mean Corpuscular Volume 90 fL N 80-97 Mean Corpuscular Hemoglobin 31 pg N 27-31 Mean Corpuscular HGB Conc 34 g/dL N 31-36 Red Cell Distribution Width 12 % N 10.5-15 Platelet Count 451 10^3/uL High 150-450 Mean Platelet Volume 7 um3 Low 7.4-10.4 Abs Neutrophils 7.9 10^3/uL High 1.5-7.7 Abs Lymphocytes 2.2 10^3/uL N 1.0-4.8 Abs Monocytes 0.6 10^3/uL N 0-0.8 Abs Eosinophils 0 10^3/uL N 0-0.6 Abs Basophils 0.1 10^3/uL N 0-0.2 Abs Nucleated RBC 0 10^3/uL N Granulocyte % 73.1 % N 38-83 Lymphocyte % 20.7 % Low 25-47 Monocyte % 5.5 % N 1-9 Eosinophil % 0.2 % N 0-6 Basophil % 0.5 % N 0-2 Nucleated Red Blood Cells % 0 N Comp Metabolic Panel 04/23/2017 [facility] Sodium 137 mmol/L N 133-[address] [place] [address] [phone] Potassium 3.4 mmol/L Low 3.5-5.0 Chloride 102 mmol/L N 101-111 Co2 Carbon Dioxide 25 mmol/L N 22-32 Anion Gap 10 mmol/L N 2-11 Glucose 89 mg/dL N 70-100 Blood Urea Nitrogen 11 mg/dL N 6-24 Creatinine 0.70 mg/dL N 0.51-0.95 BUN/Creatinine Ratio 15.7 N 8-20 Calcium 9.6 mg/dL N 8.6-10.3 Total Protein 7.5 g/dL N 6.4-8.9 Albumin 3.9 g/dL N 3.2-5.2 Globulin 3.6 g/dL N 2-4 Albumin/Globulin Ratio 1.1 N 1-3 Total Bilirubin 0.60 mg/dL N 0.2-1.0 Alkaline Phosphatase 90 U/L N 34-104 Alt 11 U/L N 7-52 Ast 14 U/L N 13-39 Egfr Non- 103.7 N >60 Egfr 133.4 N >60 9 Laboratory test 02/19/2017 [facility] Anti Nuclear 0.4 U N [address] [place] [address] [phone] Cyclic Citrullinated Pep Igg <15.6 U N 11 Lyme Disease Serology Negative N Negative 12 Laboratory test 08/19/2016 [facility] Uric Acid 4.2 mg/dL N 2.3-6.[address] [place] [address] [phone] Rheumatoid Factor <15 IU/mL N <15 13 1 Security Public Safety Officer: [id number] 2 Security Public Safety Officer: [id number] 3 Acute inflammation: >10.00 4 REFERENCE VALUE <0.4 (Negative) 5 REFERENCE VALUE <0.4 (Negative) Test Performed by: [place] [address] 6 REFERENCE VALUE <=1.0 (Negative) Test Performed by: [place] [address] 7 Test Performed by: [place] [address] 8 Test Performed by: [place] [address] 9 Because ethnic data is not always readily [...] 15-29 5 Kidney failure <15 (or dialysis) 10 REFERENCE VALUE <=1.0 (Negative) Test Performed by: [facility] - [address] [address] 11 REFERENCE VALUE <20.0 (Negative) Test Performed by: [address] [address] 12 Serologic response to B. burgdorferi infection is not detected, but cannot rule out early infection during which low or undetectable antibody levels to B. burgdorferi may be present. If clinically indicated, a new serum specimen should be submitted in 7-14 days. Test Performed by: [address] [address] Test Performed by: [place] [address] Loss Prevention Associate: Tahir Moreno II, M.D., Ph.D. Procedures Date Code Description Status 09/01/2017 35016 Dequervains-Tendon Sheath Incision/Extensor Sheath,Wrist Completed 09/01/2017 28563 Dequervains-Tendon Sheath Incision/Extensor Sheath,Wrist Completed 04/30/2017 21165 Inject Tendon Sheath Or Ligament Aponeurosis Eg Plantar Completed Fascia Encounters Type Date Location Provider Dx Diagnosis Office Visit 07/30/2018 Mingo Waite, R10.9 Unspecified 11:40a Medicine - N.P. abdominal pain [place] Office Visit 07/21/2018 Mingo Waite, N91.2 Amenorrhea, 3:20p Medicine - N.P. unspecified [place] Office Visit 07/14/2018 Orthopedic Arminda Villalobos, M65.842 Other synovitis and 3:30p Services Of [facility] tenosynovitis, left [facility] hand Office Visit 06/30/2018 Mingo Waite, H10.89 Other conjunctivitis 11:40a Medicine - N.P. Rupert J01.90 Acute sinusitis, unspecified Office Visit 06/01/2018 2:00p Mingo Waite, J06.9 Acute upper Medicine - N.P. respiratory [place] infection, unspecified Office Visit 05/11/2018 3:40p [facility] Internal Chanelle Waite, J01.90 Acute sinusitis, Medicine - N.P. unspecified [place] M25.532 Pain in left wrist Office Visit 03/11/2018 Orthopedic Arminda M65.842 Other synovitis and 3:15p Services Of Era Villalobos tenosynovitis, left [facility] hand Office Visit 02/18/2018 [facility] Dermatology Saeid Nash, L70.0 Acne vulgaris 2:20p AT [place] Office Visit 01/13/2018 Pulmonology And Amada Higuera.9 Pneumonia, 10:30a Sleep Services MD Jake unspecified Of [facility] organism Office Visit 12/17/2017 [facility] Verenice Waite, Z00.00 Encntr for general 11:00a Medicine - N.P. adult medical exam [place] w/o abnormal findings F41.1 Generalized anxiety disorder M79.644 Pain in right finger(s) L70.8 Other acne Z00.01 Encounter for general adult medical exam w abnormal findings Office Visit 09/17/2017 [facility] Verenice Waite, B37.3 Candidiasis of 9:40a Medicine - N.P. vulva and vagina [place] Office Visit 08/19/2017 Orthopedic Arminda M65.4 Radial styloid 1:30p Services Of Era Villalobos tenosynovijennie [de [facility] Quervain] Office Visit 07/22/2017 Pulmonology And Davida Ly.Aminah Pneumonia, 10:45a Sleep Services Of unspecified [facility] organism Office Visit 06/10/2017 [facility] Verenice Waite J06.9 Acute upper 10:20a Medicine - N.P. respiratory [place] infection, unspecified Office Visit 06/04/2017 Pulmonology And Davida Ly.Aminah Pneumonia, 1:00p Sleep Services Of unspecified [facility] organism Office Visit 05/14/2017 [facility] Verenice Waite, M94.0 Chondrocostal 11:40a Medicine - N.P. junction syndrome [place] [Tietze] Office Visit 05/06/2017 [facility] Verenice Lauran, H81.13 Benign paroxysmal 2:20p Medicine - N.P. vertigo, bilateral [place] R51 Headache F41.1 Generalized anxiety disorder Office Visit 04/30/2017 Pulmonology And Gregory Ly18.9 Pneumonia, 1:00p Sleep Services Of unspecified Fire Prevention Officer organism Office Visit 04/30/2017 Orthopedic Arminda M65.4 Radial styloid 11:00a Services Of Era Villalobos tenosynovitis [de [facility]. Quervain] Office Visit 04/27/2017 [facility] Internal Chanelle Waite J18.9 Pneumonia, 1:00p Medicine - N.P. unspecified [place] organism R19.7 Diarrhea, unspecified F41.1 Generalized anxiety disorder Office Visit 04/23/2017 Pulmonology And Amada J15.212 Pneumonia due to 2:45p Sleep Services Of MD Jake Methicillin Fire Prevention Officer resistant Staphylococcus aureus J18.9 Pneumonia, unspecified organism J98.4 Other disorders of lung Office Visit 04/20/2017 1:40p [facility] Internal Chanelle Waite J18.9 Pneumonia , Medicine - N.P. unspecified [place] organism M65.4 Radial styloid tenosynovitis [de Quervain] Office Visit 04/09/2017 2:00p [facility] Internal Ronak Silva NP J18.9 Pneumonia , Medicine - unspecified [place] organism Office Visit 04/03/2017 1:00p [facility] Internal Ronak Silva NP J18.9 Pneumonia , Medicine - unspecified [place] organism Office Visit 02/19/2017 10:40a [facility] Internal Chanelle Waite, F41.1 Generalized Medicine - N.P. anxiety disorder [place] R19.7 Diarrhea, unspecified M25.541 Pain in joints of right hand Office Visit 09/19/2016 2:00p [facility] Internal Wayne S29.011A Strain of muscle Ismael Feliz M.D. and tendon of Jarad front wall of thorax, init Office Visit 08/19/2016 10:00a [facility] Internal Wayne M10.00 Idiopathic gout , Ismael Feliz M.D. unspecified site Jarad M79.644 Pain in right finger(s) Plan of Treatment Future Appointment(s):09/06/2018 8:00 am - Arminda Villalobos M.D. at [facility]08/27/2018 8:00 am - Arminda Villalobos M.D. at [facility]12/20/2018 8:40 am - Chanelle Waite N.P. at [facility] Internal Medicine [facility]08/12/2018 - Arminda Villalobos M.D.M67.432 Ganglion, left wristFollow up:Follow up: 9-10 days postop
--- OUTSIDE RECORDS SUMMARY | 2018-09-11 10:17 | XMS REPORT | Continuity of Care Document ---
:1995 External Reference #:[id number] Author Name Carissa Cary CNM Address [address] [place] [address] Care Team Providers Name Role Phone Chanelle Waite Primary Care Physician Unavailable Payers Date Identification Numbers Payment Provider Subscriber Policy Number: [id number] [employer]BS [facility] Marielle Veronica PayID: [id number] [address] [address] [place] [address] Expires: 2018 Policy Number: [employer]BS Marielle Solaresl [id number] [facility] PayID: [id number] [address] [address] [place] [address] Advance Directives Description No Information Available Problems Description No Information Family History Date Family Member(s) Observation Comments Mother Depression Mother Anxiety Mother Osteoporosis Paternal Grandfather due to Bladder Cancer () Paternal Grandmother Diabetes Maternal Grandfather [place] Maternal Grandmother Arthritis Social History Type Date Description Comments Sex Unknown Education Highest level completed, Associates Degree Marital Status Lives With Spouse Diet Healthy, Well Balanced 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 1 tablet by mouth daily Immunizations Description No Information Available Vital Signs Date Vital Result Comment 09/08/2018 12:48pm BP Systolic 104 mmHg BP Diastolic 62 mmHg Height 63.5 inches 5'3.50" Weight 126.00 lb BMI (Body Mass Index) 22.0 kg/m2 Last Menstrual Period [id number] 1 Parity 0 Results Test Date Facility Test Result H/L Range Note Laboratory test 07/28/2018 [facility] HCG 2.28 mIU/mL 1 [place] [address] [phone] Type And Screen 07/28/2018 [facility] Patient Blood [place] [address] Type [phone] Antibody Screen POSITIVE Laboratory test 07/28/2018 [facility] Direct [place]igl[place] [address] Test [phone] Antibody Identification D 2 Antibody Id [employer]ocontrol 0 1 <5.0 Negative 5.0 - 25.0 Indeterminate (Repeat testing recommended after 72 hours) >25.0 Positive Perimenopausal women can display HCG levels of up to 20 mIU/mL 2 Probably due to circulating Rhogam given. Procedures Description No Information Available Encounters Description No Information Available Plan of Treatment No Information Available
[2018-09-11 10:22] VITALS: BP 99/67
--- NOTE | 2018-09-11 10:43 | UC ---
Throat Pain/Nasal Nathaniel HPI - HPI Summary HPI Summary: Pt presents with hc/o sudden onset ST 2-3 days ago. 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 - History of Current Complaint Chief Complaint: UCGeneralIllness Stated Complaint: THROAT COMPLAINT Time Seen by Provider: 09/11/18 10:32 Hx Obtained From: Patient Hx Last Menstrual Period: 08/27/18 ?: No Onset/Duration: Sudden Onset, Lasting Days, Still Present Severity: Moderate Pain Intensity: 6 Cough: None Associated Signs & Symptoms: Positive: Dysphagia - Epiglottits Risk Factors Epiglottis Risk Factors: Sudden Onset - Allergies/Home Medications Allergies/Adverse Reactions: Allergies Allergy/AdvReac Type Severity Reaction Status Date / Time No Known Allergies Allergy Verified 09/11/18 10:18 PMH/Surg Hx/FS Hx/Imm Hx Previously Healthy: Yes - Surgical History Surgical History: Yes Surgery Procedure, Year, and Place: [facility], 09/01/17, [facility] [place]. HAD MISCARRIAGE JUL 2018 - Family History Known Family History: Positive: None, Other - mother with arthritis and anxiety Negative: Cardiac Disease, Hypertension, Diabetes - Social History Occupation: Employed Full-time Lives: With Family Alcohol Use: None Substance Use Type: None Smoking Status (MU): Never Smoked Tobacco Have You Smoked in the Last Year: No - Immunization History Most Recent Influenza Vaccination: Not the 2016/2017 Season Review of Systems All Other Systems Reviewed And Are Negative: Yes Constitutional: Positive: Negative Skin: Positive: Negative Eyes: Positive: Negative ENT: Positive: Sore Throat Respiratory: Positive: Negative Cardiovascular: Positive: Negative Gastrointestinal: Positive: Negative Genitourinary: Positive: Negative Motor: Positive: Negative Neurovascular: Positive: Negative Musculoskeletal: Positive: Negative Neurological: Positive: Negative Psychological: Positive: Negative Is Patient Immunocompromised?: No Physical Exam Triage Information Reviewed: Yes Appearance: Well-Appearing Vital Signs: Initial Vital Signs Temp 98.8 F 09/11/18 10:18 Pulse 89 09/11/18 10:18 Resp 15 09/11/18 10:18 BP 99/67 09/11/18 10:18 Pulse Ox 100 09/11/18 10:18 Vital Signs Reviewed: Yes Eye Exam: Normal ENT: Positive: Pharyngeal erythema, Tonsillar swelling Dental Exam: Normal Neck exam: Normal Respiratory Exam: Normal Cardiovascular Exam: Normal Musculoskeletal Exam: Normal Neurological Exam: Normal Psychological Exam: Normal Skin Exam: Normal Throat Pain/Nasal Course/Dx - Differential Dx/Diagnosis Differential Diagnosis/HQI/PQRI: Pharyngitis, Tonsillitis Provider Diagnosis: Strep throat Discharge - Sign-Out/Discharge Documenting (check all that apply): Patient Departure All imaging exams completed and their final reports reviewed: No Studies - Discharge Plan Condition: Stable Disposition: HOME Prescriptions: Penicillin VK* LIQ* [Penicillin VK 250 MG/5 ML* LIQ*] 10 ml PO Q8H #300 ml Patient Education Materials: Strep Throat (ED) Referrals: Chanelle Waite NP [Primary Care Provider] - If Needed - Billing Disposition and Condition Condition: STABLE Disposition: Home - Attestation Statements Provider Attestation: I was available for consult. This patient was seen by the JOANN. The patient was not presented to, seen by, or examined by me. EK
== END 2018-09-11 10:54 | disposition home or self-care (01) ==
LOC: UCCORT 09:22
DX: J02.0 Streptococcal pharyngitis (principal)
CPT/HCPCS: 87651; 99212; G0463

== ENCOUNTER 2018-10-09 07:04 | Emergency (ER) | payer BC ==
--- OUTSIDE RECORDS SUMMARY | 2018-10-09 07:29 | XMS REPORT | Continuity of Care Document ---
:1995 External Reference #:[id number] Author Name Lora Rod Care Team Providers Name Role Phone Roz Rodriguez MD Primary Care Physician Unavailable Payers Date Identification Numbers Payment Provider Subscriber Policy Number: [id number] [employer] Nika Veronica PayID: [id number] [address] [address] [place] [address] Effective: 2017 Policy Number: [id number] [employer] Nika Veronica Expires: 2018 PayID: [id number] [address] [address] [place] [address] Expires: 2017 Policy Number: [employer] Nika Veronica [id number] PayID: [id number] [address] [address] [place] [address] Advance Directives Type Date Description Status Comment Other Directive 12/17/2017 Health Care Proxy Current and Verified Problems Date Description Provider Status Onset: 02/21/2017 Generalized anxiety disorder Chanelle Waite N.P. Active Onset: 04/23/2017 Pneumonia Amada Joseph MD Active Family History Date Family Member(s) Observation Comments General Diabetes General Heart Disease General Cancer General Rheumatoid Arthritis Father Unknown Mother Arthritis Mother Osteoporosis Siblings Several 2 older brothers and 1 younger sister, 1 brother has tuberculosis. Social History Type Date Description Comments Sex Unknown Marital Status enaged - planning on 03/2018 Lives With Male Partner Occupation Works at [employer] ETOH Use Rarely consumes alcohol 1-2x/yr Tobacco Use Start: Unknown Patient has never smoked Recreational Drug Use Never Used Drugs Smoking Status Reviewed: 10/04/18 Patient has never smoked Exercise Type/Frequency Exercises regularly 1 hr 2x weekly - yoga Exercise Type/Frequency Exercises sporadically Allergies, Adverse Reactions, Alerts Description No Known Drug Allergies Medications Medication Date Status Form Strength Qnty SIG Indications Ordering Provider Fluconazole 09/16/ Active Tablets 150mg 2tabs one by Chanelle 2018 mouth december Varn, N.P. repeat in 3 days as needed Ultracet 08/23/ Active Tablets 37.5-325m 15tab 1 tab by Arminda 2018 g s mouth Villalobos, every 4-6 M.D. hours as needed pain Ibuprofen 12/17/ Active Tablets 200mg as needed Chanelle 2017 Varn, N.P. Hydroxyzine HCL 12/17/ Active Tablets 25mg 30tab 1 tablets F41.1 Chanelle 2017 s by mouth Varn, N.P. every [...] 2018 - s tablet by Varn, N.P. 05/21/ mouth 2017 twice daily for 10 days Metronidazole 12/17/ Hx Gel 1% 55gm apply to L70.8 Chanelle 2017 - affectd Varn, N.P. 02/01/ areas 2018 once daily Fluconazole 09/17/ Hx Tablets 150mg 2tabs one by B37.3 Chanelle 2018 - mouth december Varn, N.P. 12/17/ repeat in 2018 3 days as needed Tramadol HCL 09/01/ Hx Tablets 50mg 15tab 1 tablet Arminda 2017 - s by mouth Villalobso, 10/01/ every 4-6 M.D. 2018 hours as needed pain. Tramadol 08/19/ Hx Tablets 37.5-325m 15tab 1 tab by Armindadevora Waddell/Javy 2017 - g s mouth Villalobos, taminophen 09/01/ [...] Capsules 100mg 30cap take one J18.9 Ronak 2017 - s or two ANDREAS Silva 04/30/ capsules 2017 every 8 hours as needed for cough. Tramadol HCL 04/03/ Hx Tablets 50mg 42tab 1-2 J18.9 Ronak 2016 - s tablets ANDREAS Silva 04/11/ every 8 2016 hours as needed for pain. Hydroxyzine 02/19/ Hx Capsules 25mg 30cap one by F41.1 Chanelle Pamoate 2016 - s mouth Varn, N.P. 04/03/ every 8 2016 hours as needed for anxiety Tessalon Perlmartinez 08/21/ Hx Capsules 100mg 42cap 1 cap 3 Wayne 2016 - three Vance, 02/19/ times M.D. 2016 Colcrys 08/19/ Hx Tablets 0.6mg 30tab take 1 M10.00 Wayne 2016 - s tabs Tray, 02/19/ daily M.D. 2016 until pain is resolved Ortho Tri-Cyclen / Hx Tablets 0.18/0.21 1 by Unknown Lo 0000 - 5/0.25 mouth 04/30/ mg-25 mcg every day 2016 Levofloxacin / Hx Tablets 500mg Zarrini 0000 - Alex, 2016 Naproxen / Hx Tablets 500mg prn Kyaw 0000 - Alex, 2016 Fluconazole / Hx Tablets 150mg Tam Shelton MD 2016 Cyclobenzaprine /00/ Hx Tablets 10mg Unknown HCL 0000 - 2016 Ibuprofen /00/ Hx Tablets 600mg Unknown 0000 - 2016 Olanzapine / Hx Tablets 2.5mg take 1 Unknown 0000 - tablet by 04/03/ mouth at 2017 bedtime Escitalopram / Hx Tablets 10mg take 1 Unknown Oxalate 0000 - tablet by mouth 2016 once daily Sertraline HCL / Hx Tablets 50mg take 1 Unknown 0000 - tablet by 2016 once daily Cefdinir / Hx Capsules 300mg qd (began Unknown 0000 - on 04/19) 2016 Mucinex Not / Hx Tablets ER 600mg prn Unknown Taking 0000 - 12HR 2016 Vitamin / Hx Unknown - 2017 Medications Administered in Office Medication Date Status Form Strength Qnty SIG Indications Ordering Provider Depomedrol Administered Injection Arminda 40MG Guero Villalobos M.D. PPD Administered Injection Nurse Visit 017 A Immunizations Description No Information Available Vital Signs Date Vital Result Comment 10/04/2018 8:28am Height 64 inches 5'4" Heart Rate 66 /min BP Systolic 110 mmHg BP Diastolic 68 mmHg Respiratory Rate 17 /min Body Temperature 98.0 F Pain Level 7 09/06/2018 8:01am Height 64 inches 5'4" Heart Rate 84 /min BP Systolic 98 mmHg BP Diastolic 62 mmHg Body Temperature 97.6 F Pain Level 0 08/12/2018 3:10pm Height 64 inches 5'4" Heart [...] Test Result H/L Range Note Laboratory test [facility] Rapid Strep POSITIVE Abnormal Negative 1 finding [address] [place] [address] [phone] Laboratory test [facility] Surgical SEE RESULT 2 , 3 finding [address] [place] [address] [phone] Laboratory test [facility] Rapid Strep Negative Negative 4 finding [address] [place] [address] [phone] Rapid Influenza [facility] Influenza A NEGATIVE Negative 5 A & B Molecular [address] [place] [address] [phone] Influenza B Molecular NEGATIVE Negative Laboratory test 04/30/2017 [facility] Angiotensin 51 U/L N 8 - 53 [address] [place] [address] [phone] Rheumatoid Factor <15 IU/mL N <15 7 CBC Auto Diff 04/30/2017 [facility] White Blood 10.7 10^3/uL N 3.5-10.[address] [place] [address] [phone] Red Blood Count 4.87 10^6/uL N 4.0-5.4 [...] Nucleated Red Blood Cells % 0 N Laboratory test 04/30/2017 [facility] C Reactive Protein 2.25 mg /L N < 5.00 [address] [place] [address] [phone] Anca Panel For 04/30/2017 [facility] Myeloperoxidase AB < 0.2 U N [address] [place] [address] [phone] Proteinase 3 AB < 0.2 U N 10 Laboratory test 04/30/2017 [facility] Anti Nuclear 0.5 U N [address] [place] [address] [phone] CBC Auto Diff 04/23/2017 [facility] White Blood 10.8 N 3.5-[address] Count 10^3/uL .8 [place] [address] [phone] Red Blood Count 4.70 10^6/uL N 4.0-5.4 [...] % 0 N Comp Metabolic Panel 04/23/2017 [facility] Sodium 137 mmol/L N 133-[address] [place] [address] [phone] Potassium 3.4 mmol/L Low 3.5-5.0 Chloride 102 [...] 103.7 N >60 Egfr 133.4 N >60 12 Laboratory test 02/19/2017 [facility] Anti Nuclear 0.4 U N 13 finding [address] [place] [address] [phone] Cyclic Citrullinated Pep Igg <15.6 U N 14 Lyme Disease Serology Negative N Negative 15 Laboratory test 08/19/2016 [facility] Uric Acid 4.2 mg/dL N 2.3-6.6 finding [address] [place] [address] [phone] Rheumatoid Factor <15 IU/mL N <15 16 1 Collections Technician: [id number] 3 SEE RESULT BELOW Name: NIKA VERONICA : [address]: Arminda Villalobos MD Acct: [id number] Unit: [id number] AGE: 23 Location: [facility] Re08/27/18 SEX: F Status: ALEXANDREA SHAH SPEC: [id number] SUSAN: 08/27/[address] [facility] [address]: Arminda Villalobos MD REQ: [id number] RECD: 08/27/18 STATUS: SOUT _ ORDERED: LEVEL 3 COMMENTS: [id number] FINAL DIAGNOSIS Soft tissue, left wrist, excision: -- Ganglion cyst. PRE-OPERATIVE DIAGNOSIS Left wrist/hand ganglion cyst GROSS DESCRIPTION The specimen is received in formalin labeled, Left Wrist Mass, and consists of a 0.8 x 0.8 x 0.3 cm aggregate of mccormick-yellow irregular adipose and fibrous tissue fragments. Entirely submitted, one cassette. Signed by and Reported on: Ben Aiken MD 1218 END OF REPORT DEPARTMENT OF PATHOLOGY, [address] [place] [address] Ben Aiken M.D. Director [facility] # [id number] 4 Collections Technician: [id number] Collections Technician: [id number] 6 Test Performed by: [address] [address] 7 Test Performed by: [facility] [address] [place] [address] 8 Acute inflammation: >10.00 9 REFERENCE VALUE <0.4 (Negative) 10 REFERENCE VALUE <0.4 (Negative) Test Performed by: [facility] [address] [place] [address] 11 REFERENCE VALUE <=1.0 (Negative) Test Performed by: [address] [address] 12 Because ethnic data is not always readily [...] 15-29 5 Kidney failure <15 (or dialysis) 13 REFERENCE VALUE <=1.0 (Negative) Test Performed by: [address] [address] 14 REFERENCE VALUE <20.0 (Negative) Test Performed by: [address] [address] 15 Serologic response to B. burgdorferi infection is not detected, but cannot rule out early infection during which low or undetectable antibody levels to B. burgdorferi may be present. If clinically indicated, a new serum specimen should be submitted in 7-14 days. Test Performed by: [facility] - [address] [address] 16 Test Performed by: [address] [address] Director Of In Service Education: Tahir Moreno II, M.D., Ph.D. Procedures Date Code Description Status 08/27/2018 39682 Excision Ganglion Wrist/ Dorsal Or Volar; Primary Completed 08/27/2018 73762 Excision Ganglion Wrist/ Dorsal Or Volar; Primary Completed 09/01/2017 03687 Dequervains-Tendon Sheath Incision/Extensor Sheath,Wrist Completed 09/01/2017 24580 Dequervains-Tendon Sheath Incision/Extensor Sheath,Wrist Completed 04/30/2017 32507 Inject Tendon Sheath Or Ligament Aponeurosis Eg Plantar Completed Fascia Encounters Type Date Location Provider Dx Diagnosis Office Visit 08/12/2018 Orthopedic Arminda Villalobos, M67.432 Ganglion, left wrist 3:00p [facility] C.M.[facility]. Office Visit 07/30/2018 Mingo Waite, R10.9 Unspecified 11:40a Medicine - N.P. abdominal pain [place] Office Visit 07/21/2018 Mingo Waite, N91.2 Amenorrhea, 3:20p Medicine - N.P. unspecified Laura Office Visit 07/14/2018 Orthopedic Arminda Villalobos, M65.842 Other synovitis and 3:30p [facility] tenosynovitis, left C.M.A. hand Office Visit 06/30/2018 Mingo Waite, H10.89 Other conjunctivitis 11:40a Medicine - N.P. Laura J01.90 Acute sinusitis, unspecified Office Visit 06/01/2018 2:00p Mingo Waite, J06.9 Acute upper Medicine - N.P. respiratory Laura infection, unspecified Office Visit 05/11/2018 3:40p [facility] Chanelle Waite, J01.90 Acute sinusitis, Medicine - N.P. unspecified Laura M25.532 Pain in left wrist Office Visit 03/11/2018 Orthopedic Arminda M65.842 Other synovitis and 3:15p [facility] Villalobos tenosynovitis, left C.M.A. hand Office Visit 02/18/2018 [facility] Dermatology Saeid Kuozer, L70.0 Acne vulgaris 2:20p AT [place] Office Visit 01/13/2018 Pulmonology And Amada Jenkins18.9 Pneumonia, 10:30a Sleep Services MD Jake unspecified Of [facility] organism Office Visit 12/17/2017 [facility] Verenice Waite, Z00.00 Encntr for general 11:00a Medicine - N.P. adult medical exam Laura w/o abnormal findings F41.1 Generalized anxiety disorder M79.644 Pain in right finger(s) L70.8 Other acne Z00.01 Encounter for general adult medical exam w abnormal findings Office Visit 09/17/2017 [facility] Verenice Waite B37.3 Candidiasis of 9:40a Medicine - N.P. vulva and vagina Laura Office Visit 08/19/2017 Orthopedic Arminda M65.4 Radial styloid 1:30p [facility] Villalobos tenosynovitis [de C.M.A. Quervain] Office Visit 07/22/2017 Pulmonology And Gregory Ly18.9 Pneumonia, 10:45a Sleep Services Of unspecified [facility] organism Office Visit 06/10/2017 [facility] Chanelle Waite J06.9 Acute upper 10:20a Medicine - N.P. respiratory Laura infection, unspecified Office Visit 06/04/2017 Pulmonology And Gregory Ly18.9 Pneumonia, 1:00p Sleep Services Of unspecified [facility] organism Office Visit 05/14/2017 [facility] Verenice Waite M94.0 Chondrocostal 11:40a Medicine - N.P. junction syndrome Laura [Tietze] Office Visit 05/06/2017 [facility] Verenice Waite H81.13 Benign paroxysmal 2:20p Medicine - N.P. vertigo, bilateral Laura R51 Headache F41.1 Generalized anxiety disorder Office Visit 04/30/2017 Pulmonology And Gregory Ly18.9 Pneumonia, 1:00p Sleep Services Of unspecified [employer] organism Office Visit 04/30/2017 Orthopedic Arminda M65.4 Radial styloid 11:00a [facility] Villalobos tenosynovitis [de C.M.A. Quervain] Office Visit 04/27/2017 [facility] Chanelle Waite J18.9 Pneumonia, 1:00p Medicine - N.P. 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 unspecified Laura organism M65.4 Radial styloid tenosynovitis [de Quervain] Office Visit 04/09/2017 2:00p [facility] Ronak Silva NP J18.9 Pneumonia , Medicine - unspecified [place] organism Office Visit 04/03/2017 1:00p [facility] Ronak Silva NP J18.9 Pneumonia , Medicine - unspecified [place] organism Office Visit 02/19/2017 10:40a [facility] Chanelle Waite, F41.1 Generalized Medicine - N.P. anxiety disorder Laura R19.7 Diarrhea, unspecified M25.541 Pain in joints of right hand Office Visit 09/19/2016 2:00p [facility] Wayne S29.011A Strain of muscle Ismael Feliz M.D. and tendon of [place] front wall of thorax, init Office Visit 08/19/2016 10:00a [facility] Wayne M10.00 Idiopathic gout , Ismael Feliz M.D. unspecified site Jarad M79.644 Pain in right finger(s) Plan of Treatment Future Appointment(s):11/01/2018 8:00 am - Arminda Villalobos, M.D. at [facility]/19/2018 4:00 pm - Roz Rodriguez M.D. at [facility] - Sawguhshr96/20/2019 8:40 am - Chanelle Waite N.P. at [facility] - [id number]/04/2019 - Charley Iglesias, [facility]-CM67.432 Ganglion, left wristNew Therapy:Physical TherapyFollow up:Follow up: 4 weeks
[2018-10-09 07:42] VITALS: BP 102/60
--- NOTE | 2018-10-09 08:08 | UC ---
Throat Pain/Nasal Nathaniel HPI - HPI Summary HPI Summary: sore throat, nasal congestion x 2 days cough , pnd, no fever, + body aches and chills concern about flu - History of Current Complaint Chief Complaint: UCRespiratory Stated Complaint: FLU LIKE SXS Time Seen by Provider: 10/09/18 07:49 Hx Obtained From: Patient Hx Last Menstrual Period: 09/28/18 Onset/Duration: Gradual Onset, Lasting Days - 2, Still Present Severity: Moderate Pain Intensity: 1 Cough: Nonproductive Associated Signs & Symptoms: Positive: Nasal Discharge. Negative: Dysphagia, FB Sensation, Drooling, Wheezing, Hoarseness, Sinus Discomfort, Fever, Vomiting , Rash - Allergies/Home Medications Allergies/Adverse Reactions: Allergies Allergy/AdvReac Type Severity Reaction Status Date / Time No Known Allergies Allergy Verified 10/09/18 07:32 Home Medications: Home Medications Phenylephrine/Dm/Acetaminop/GG [Mucinex Fast-Max Cold Flu] 1 liq PO ONCE PRN 04/21 [History Confirmed 10/09/18] Vitamin TAB* 1 tab PO QPM 10/09/18 [History Confirmed 10/09/18] PMH/Surg Hx/FS Hx/Imm Hx Previously Healthy: Yes - Surgical History Surgical History: Yes Surgery Procedure, Year, and Place: Left Dequervain's, 09/01/17[place] [facility] [place]. HAD MISCARRIAGE JUL 2018; pneumonia 2016, pleurisy 2016, PE r/t OC 2016 - Family History Known Family History: Positive: None, Other - mother with arthritis and anxiety Negative: Cardiac Disease, Hypertension, Diabetes - Social History Alcohol Use: None Substance Use Type: None Smoking Status (MU): Never Smoked Tobacco Have You Smoked in the Last Year: No - Immunization History Most Recent Influenza Vaccination: Not the 2016/2017 Season Review of Systems All Other Systems Reviewed And Are Negative: Yes Constitutional: Positive: Chills, Fatigue Skin: Positive: Negative Eyes: Positive: Negative ENT: Positive: Sore Throat, Nasal Discharge Respiratory: Positive: Cough Cardiovascular: Positive: Negative Gastrointestinal: Positive: Negative Is Patient Immunocompromised?: No Physical Exam Triage Information Reviewed: Yes Appearance: Well-Appearing, No Pain Distress, Well-Nourished Vital Signs: Initial Vital Signs Temp 99 F 10/09/18 07:35 Pulse 91 10/09/18 07:35 Resp 18 10/09/18 07:35 BP 102/60 10/09/18 07:35 Pulse Ox 100 10/09/18 07:35 Vital Signs Reviewed: Yes Eye Exam: Normal Eyes: Positive: Conjunctiva Clear ENT Exam: Normal ENT: Positive: Normal ENT inspection, Hearing grossly normal Neck: Positive: Supple, Nontender, No Lymphadenopathy Respiratory Exam: Normal Respiratory: Positive: Chest non-tender, Lungs clear, Normal breath sounds Cardiovascular: Positive: RRR, No Murmur, Pulses Normal Skin Exam: Normal Throat Pain/Nasal Course/Dx - Differential Dx/Diagnosis Provider Diagnosis: URI (upper respiratory infection) Discharge - Sign-Out/Discharge Documenting (check all that apply): Patient Departure All imaging exams completed and their final reports reviewed: No Studies - Discharge Plan Condition: Stable Disposition: HOME Patient Education Materials: Upper Respiratory Infection (DC) Referrals: Chanelle Waite NP [Primary Care Provider] - If Needed - Billing Disposition and Condition Condition: STABLE Disposition: Home
[2018-10-09 08:14] LABS: Influenza A Molecular NEGATIVE (Negative); Influenza B Molecular NEGATIVE (Negative)
== END 2018-10-09 08:18 | disposition home or self-care (01) ==
LOC: UCCORT 07:04
DX: J06.9 Acute upper respiratory infection, unspecified (principal)
CPT/HCPCS: 99211; G0463

== ENCOUNTER 2019-05-21 07:02 | Emergency (ER) | payer BC ==
[2019-05-21 07:23] VITALS: BP 105/64
--- NOTE | 2019-05-21 08:00 | UC ---
Cardiac HPI - HPI Summary HPI Summary: 24-year-old old woman who is 33 weeks comes in with chief complaint of right sided chest pain. Started sudden onset yesterday at rest. I worse it's a 7 out of 10. The pain was worse yesterday and she did have the pain during the night. Pain did decrease some this morning. No recent upper respiratory tract infection symptoms no chest congestion fevers. No calf pain no calf swelling. Last year patient was seen by pulmonology due to chest pain and had been treated for pneumonia and pleurisy and then there was a question of a pulmonary embolus. Patient is on aspirin due to the possible history of pulmonary embolus. Patient has no complaint of shortness of breath. No recent surgeries or travel. Patient does feel the baby moving normally. No burning with urination or UTI symptoms. - History of Current Complaint Chief Complaint: UCChestPain Stated Complaint: RT SIDE PAIN Time Seen by Provider: 05/21/19 07:17 Hx Last Menstrual Period: Sep Pain Intensity: 0 - Allergy/Home Medications Allergies/Adverse Reactions: Allergies Allergy/AdvReac Type Severity Reaction Status Date / Time No Known Allergies Allergy Verified 05/21/19 07:12 Home Medications: Home Medications Aspirin 81 mg CHEW TAB* [Aspirin Low Dose TAB*] 81 mg PO DAILY 05/21/19 [ History Confirmed 05/21/19] PMH/Surg Hx/FS Hx/Imm Hx Previously Healthy: Yes - POSSIBLE PE - Surgical History Surgical History: Yes Surgery Procedure, Year, and Place: Left [facility], 09/01/17[place] [facility] [place]. HAD MISCARRIAGE JUL 2018; pneumonia 2016, pleurisy 2016, PE r/t OC 2016. LEFT [facility] - Family History Known Family History: Positive: None, Other - mother with arthritis and anxiety Negative: Cardiac Disease, Hypertension, Diabetes - Social History Alcohol Use: None Substance Use Type: None Smoking Status (MU): Never Smoked Tobacco Have You Smoked in the Last Year: No - Immunization History Most Recent Influenza Vaccination: Not the 2017/2017 Season Review of Systems All Other Systems Reviewed And Are Negative: Yes Constitutional: Positive: Negative Skin: Positive: Negative Eyes: Positive: Negative ENT: Positive: Negative Respiratory: Positive: Negative Cardiovascular: Positive: Chest Pain Gastrointestinal: Positive: Negative, Other - 33 WEEKS Genitourinary: Negative: Dysuria, Frequency, Urgency Motor: Positive: Negative Neurovascular: Positive: Negative Musculoskeletal: Positive: Negative. Negative: Calf Tenderness, Edema Neurological: Positive: Negative Psychological: Positive: Negative Is Patient Immunocompromised?: No Physical Exam Triage Information Reviewed: Yes Appearance: Well-Appearing, No Pain Distress, Well-Nourished Vital Signs: Initial Vital Signs Temp 97.9 F 05/21/19 07:13 Pulse 106 05/21/19 07:13 Resp 14 05/21/19 07:13 BP 105/64 05/21/19 07:13 Pulse Ox 100 05/21/19 07:13 Vital Signs Reviewed: Yes Eye Exam: Normal Eyes: Positive: Conjunctiva Clear Neck: Positive: Supple Respiratory: Positive: Chest non-tender, Lungs clear, Normal breath sounds, No respiratory distress, Other: - No rash seen on the right side of the chest Cardiovascular: Positive: RRR Abdomen Description: Positive: Other: - 33 weeks . No abdominal tenderness.. Negative: CVA Tenderness (R), CVA Tenderness (L) Musculoskeletal: Positive: Strength Intact, ROM Intact, No Edema - NO CALF TENDERNESS Neurological: Positive: Alert Psychological: Positive: Age Appropriate Behavior Skin Exam: Normal - Assessment/Plan Course Of Treatment: Using the well's criteria of the patient having a prior pulmonary embolus and her heart rate being greater than 100 she scores 3.0 which is intermediate which then would recommend further investigation most probably with a d-dimer. I discussed all this with the patient and she is going to contact her technology trainer and she plans to get further evaluation in the [facility] emergency Department at [place] today. In clinic the patient was hemodynamically stable in no acute distress. - Clinical Impression Provider Diagnosis: Right-sided chest pain Discharge ED - Sign-Out/Discharge Documenting (check all that apply): Patient Departure All imaging exams completed and their final reports reviewed: No Studies - Discharge Plan Condition: Stable Disposition: HOME-RECOMMEND TO ED Patient Education Materials: Chest Pain (ED), Pulmonary Embolism (ED) Referrals: Chanelle Waite NP [Primary Care Provider] - [facility] [Provider Group] Additional Instructions: FOLLOW UP WITH YOUR OBGYN TODAY. I RECOMMEND FURTHER EVALUATION FOR THE POSSIBILITY OF A PULMONARY EMBOLIS IN THE EMERGENCY DEPARTMENT. GO TO THE EMERGENCY DEPARTMENT FOR FURTHER EVALUATION AND CARE. - Billing Disposition and Condition Condition: STABLE Disposition: Home-Recommend to ED
== END 2019-05-21 08:06 | disposition home health service (06) ==
LOC: UCCORT 07:02
DX: O99.89 Other specified diseases and conditions complicating pregnancy, childbirth and the puerperium (principal); R07.89 Other chest pain; Z3A.33 33 weeks gestation of pregnancy; Z79.82 Long term (current) use of aspirin
CPT/HCPCS: 81003; 87086; 99212; G0463

== ENCOUNTER 2019-07-13 20:53 | Inpatient (IN) | payer BC ==
[2019-07-13] MEDS ORDERED: Lactated Ringers 1000 ML Bag* 1,000 ML IV ONE (23:20)
[2019-07-13] MEDS ORDERED: Buffered Lidocaine 1% SYRIN* 1 ML/SYRINGE INTRADERM ONE (23:20)
--- NOTE | 2019-07-13 23:29 | HP ---
General Information - Reason for Visit Contractions - General Information Maternal Age: 24 Grav: 2 Para: 0 SAB: 1 IEA: 0 Estimated Due Date: 07/05/19 Determined By: LMP Gestational Age in Weeks/Days: 41 08/09 Maternal Blood Type and Rh: B Negative - Results this Serology/RPR Result: Non-Reactive Rubella Result: Immune HBsAg Result: Negative HIV Result: Negative GBS Culture Result: Negative Past Medical History Delivery History: See Records Delivery History Comment: no prior deliveries Pertinent Past Medical History: See Records Past Medical History Comment: Significant anxiety, sees a therapist Pt with possible history of blood clot, never confirmed, no meds Pertinent Past Surgical History: See Records Past Surgical History Comment: [place] Tooth Extraction -2016 Wrist Surgery (tenosynovities) - 09/2017 Ganglion Cyst - 08/27/18 Pertinent Family History: See Records Family History Comment: Mother: Depression, anxiety, osteoporosis Brother: Tuberous sclerosus complex Sister: Anxiety - Antepartal Records Antepartal Records: Reviewed, Complicated by: - Rh negative status, choroid plexus cyst Review of Systems Constitutional: Uncomfortable CV Complaint: No Respiratory: Shortness of Breath: No Gastrointestinal: No Nausea/Vomiting, Normal Bowel Movement Genitourinary: No Dysuria, No Bleeding, No Leaking Fluid Musculoskeletal: Contractions Neurological: No Headache, No Visual Changes Movement: Normal Exam Allergies/Adverse Reactions: Allergies No Known Allergies Allergy (Verified 07/13/19 22:49) B/P: 131/79, P: 105, R: 20, T: 98.7 - Measurements Height: 5 ft 3.5 in Weight: 146 lb Weight in lbs: [phone] Body Mass Index (BMI): 25.4 Pre- Weight: 125 lb Weight Gained This : 21 lbs and 0 ozs - Exam Breast: Breast Exam Deferred CVA: No CVA Tenderness Extremities: No Edema Heart: Normal Rhythm/Heart Sounds HEENT: No Significant Findings Lungs: Clear Bilaterally Reflexes: DTR 2+ Thyroid: No Thyromegaly - Abdominal Exam Abdomen Exam: Non-Tender, Fundal Height Consistent with Dates - Ultrasound/Biophysical Profile Ultrasound Status: Not Done Targeted Exam Findings See L&D Outpatient Visit Provider Note for Findings: N/A Estimated Weight: 7.5 lb by zach's Cervical Exam: 2cm Effacement: 80% Station: -1 Presenting Part: Vertex Membrane Status: Intact Bleeding/Discharge: None EFM Findings - External Monitor Findings Baseline Heart Rate: 135 External Monitor Findings: Accelerations Present, No Pattern of Variable or Late Decelerations, Variability Moderate, Baseline Stable Contractions: Regular, Moderate, 45-90 Seconds Contraction Frequency: 2-4 minutes Assessment/Plan - Assessment A: IUP at 41 1/7 weeks Category I FHR, no evidence of metabolic acidemia GBS negative Early labor P: Admit to inpatient Hopes to avoid epidural Position changes, tub encouraged Reassess PRN Anticipate SVB - Obstetrical Risk Factors Obstetrical Risk Factors: Post-Dates - Plan Plan: Admit - Anticipate Vaginal Delivery - Date/Time of Admission Date of Admission: 07/13/19 Time of Admission: 22:35
[2019-07-13] MEDS ORDERED: Lactated Ringers 1000 ML Bag* 1,000 ML IV SCH (23:45)
[2019-07-14] MEDS ORDERED: Nalbuphine* 10 MG/ML 1 ML VIAL IV ONE
[2019-07-14] MEDS ORDERED: Promethazine INJ(RESTRICTED)* 25 MG/ML 1 ML VIAL IV ONE
[2019-07-14] MEDS ORDERED: Promethazine INJ(RESTRICTED)* 25 MG/ML 1 ML VIAL IM ONE ×2 (03:00)
[2019-07-14] MEDS ORDERED: Nalbuphine* 10 MG/ML 1 ML VIAL IM ONE ×2 (03:00)
[2019-07-14 03:38] LABS: Urine Benzodiazepine Screen None Detected (None Detect); Urine Opiates Screen None Detected (None Detect)
--- NOTE | 2019-07-14 09:05 | PN ---
Progress Note - Progress Note Date of Service: 07/14/19 Note: S: Pt is on hands and knees in bed. Working through contractions with help of exhaust and muffler repairer, mother, , and friend/ sports photographer O: 98.3, 116/68, HR 129 FHR 140, variable decel, moderate variability, +accels Contractions every 2-3 minutes VE: 5/100/0, +bloody show, IBOW A: 24yo, IUP@41+2 in active labor VSS, Rh negative, GBS negative Cervix changing Regular contractions No evidence of metabolic acidemia P: continue position changes anticipate progression to
--- NOTE | 2019-07-14 10:03 | PN ---
Progress Note - Progress Note Date of Service: 07/14/19 Note: S: Pt is sitting at bedside. Unable to cope with contraction pain. Requesting epidural. Sawing And Assembly Supervisor, mother, , and friend/window draper. O: 98.3, 116/68, HR 129 FHR 140, moderate variability, +accels Contractions every 2-3 minutes VE: 7/100/0, +bloody show, IBOW A: 24yo, IUP@41+2 in active labor VSS, Rh negative, GBS negative Cervix changing Regular contractions No evidence of metabolic acidemia P: continue position changes Hold on epidural, will try nitrous oxide first anticipate progression to
[2019-07-14] MEDS ORDERED: Ibuprofen TAB* 600 MG PO PRN (15:45)
[2019-07-14] MEDS ORDERED: Glycerin ADULT SUPP PR PRN (15:45)
[2019-07-14] MEDS ORDERED: Acetaminophen TAB* 325 MG PO PRN (15:45)
[2019-07-14] MEDS ORDERED: RHO D Immune Globulin (HUMAN)* 300 MCG = 1,500 I.U. INJ IM ONE (15:45)
[2019-07-14] MEDS ORDERED: OXYTOCIN* 10 UNITS/ML 1 ML VIAL IM ONE (15:45)
[2019-07-14 15:56] LABS: Hematocrit 34 % (35-47); Hemoglobin 10.7 g/dL (12.0-16.0); Mean Corpuscular HGB Conc 32 g/dL (31-36); Mean Corpuscular Hemoglobin 27 pg (27-31); Mean Corpuscular Volume 84 fL (80-97); Mean Platelet Volume 8.2 fL (7.4-10.4); Platelet Count 380 10^3/uL (150-450); Red Blood Count 3.99 10^6 /uL (3.70-4.87); Red Cell Distribution Width 15 % (10-15); White Blood Count 35.4 10^3/uL (3.5-10.8)
[2019-07-14] MEDS ORDERED: Lactated Ringers 1000 ML Bag* 1,000 ML IV SCH (16:00)
[2019-07-14 16:31] LABS: ABS Basophils 0.1 10^3/ul (0-0.2); ABS Lymphocytes 0.7 10^3/ul (1.0-4.8); ABS Monocytes 1.7 10^3/ul (0-0.8); ABS Neutrophils 32.9 10^3/ul (1.5-7.7)
[2019-07-14] MEDS ORDERED: Simethicone TAB* 80 MG TAB.CHEW PO SCH (17:30)
[2019-07-14] MEDS ORDERED: Misoprostol TAB* 200 MCG ONE (18:12)
[2019-07-14] MEDS: Witch Hazel PAD* JAR TOPICAL PRN (18:13)
[2019-07-14] MEDS: Dibucaine 1% 28.35 GM TUBE PR PRN (18:14)
[2019-07-14] MEDS: ceFOXitin 2 GM IVPREMIX* 2 GM/50 ML BAG IVPB SCH (18:42)
--- NOTE | 2019-07-14 19:26 | PN ---
Progress Note - Progress Note Date of Service: 07/14/19 Note: S: Pt is sitting at bedside. Coping with contraction pain better while using nitrous oxide. Requesting epidural. Supercalender Operator Helper, mother, , and friend/workers compensation analyst. O: 98.3, 116/68, HR 129 FHR 140, moderate variability, +accels Contractions every 2-3 minutes VE: 8/100/0, +bloody show, AROM A: 24yo, IUP@41+2 in active labor VSS, Rh negative, GBS negative Cervix changing Regular contractions No evidence of metabolic acidemia AROM - clear fluid P: continue position changes Continue using nitrous oxide prn anticipate progression to
--- NOTE | 2019-07-14 19:26 | PROCNOTE ---
[facility] OB: Delivery Note - Delivery A Date of : 07/14/19 Time of : 14:52 [place] Sex: Female Weight at : 7 lb 4 oz Score 1 Minute: 9 Score 5 Minutes: 9 Gestational Age in Weeks and Days at Delivery: 41 Weeks and 2 Days Delivery Method: Spontaneous Vaginal Labor: Spontaneous Did Patient attempt ?: N/A, No Previous Amniotic Fluid: Clear Estimated Blood Loss: 450 Anesthesia/Analgesia: Nitrous-Labor Delivered By: Lorie Keith - Nursery Level of Nursery: Regular/Bedside - Perineum Perineal Injury: 1st Degree Perineal Repair: By Delivering Practioner - Events Delivery Events of Note: Pitocin Only After Delivery, Post- Bleeding - Meds Given - Additional Delivery Notes Additional Delivery Notes: Normal spontaneous vertex delivery of live female, 7lbs 4oz and Apgars 9/9. Delivered left occipital-anterior (KATHLEEN), nuchal cordx1. Body delivered without difficulty. Baby placed on mothers abdomen. Cord clamped and cut by FOB after pulsations ceased. Placenta delivered spontaneously via howard, appears intact , 3vc. Pitocin, 10mg given IM. With continued bleeding, 800mcg of misoprostol was given MT. Bleeding then ceased, fundus firm. Perineum and vagina inspected - first degree perineal laceration was noted. Repaired in the usual fashion, anatomy restored, hemostatic. EBL 450mL. Pt noted to have continuing tachycardia following . An IV was started and an LR bolus was infused and then continued to run at a stable rate. Pt and baby stable at time of note. Baby attempting to breastfeed.
--- NOTE | 2019-07-14 19:41 | PN ---
Progress Note - Progress Note Date of Service: 07/14/19 Note: S: Called by RN. Following administration of fluids, pt's HR fell into 120s Pulse then elevated again and temp noted to be 101 Pt was assessed and found to be sitting at the bedside, eating dinner, visiting with family States she feels weak, but otherwise doing well, anxious. She has a hx of severe anxiety and states she is tachycardic with anxiety. Possible hx of blood clot. Conflicting evidence in MR, and pt uncertain I: Lungs clear to auscultation bilaterally, HR 150, SpO2 100% Negative Eric's sign P: Consulted with SAG, given temp >100.4 and tachycardic, decision made to start antibiotics Monitor temp and VS closely
[2019-07-14] MEDS: Docusate CAP* 100 MG PO SCH (21:05)
[2019-07-15] MEDS: ceFOXitin 2 GM IVPREMIX* 2 GM/50 ML BAG IVPB SCH ×2 (06:21→13:40)
[2019-07-15 08:11] LABS: ABS Basophils 0.1 10^3/ul (0-0.2); ABS Monocytes 1.4 10^3/ul (0-0.8); ABS Neutrophils 16.2 10^3/ul (1.5-7.7); Eosinophil % 0.1 %; Hematocrit 21 % (35-47); Hemoglobin 7.1 g/dL (12.0-16.0); Lymphocyte % 9.9 %; Mean Corpuscular HGB Conc 33 g/dL (31-36); Mean Corpuscular Hemoglobin 28 pg (27-31); Mean Corpuscular Volume 83 fL (80-97); Mean Platelet Volume 7.9 fL (7.4-10.4); Platelet Count 213 10^3/uL (150-450); Red Blood Count 2.56 10^6 /uL (3.70-4.87); Red Cell Distribution Width 16 % (10-15); White Blood Count 19.7 10^3/uL (3.5-10.8)
[2019-07-15] MEDS: Dibucaine 1% 28.35 GM TUBE PR PRN (08:55)
[2019-07-15] MEDS: Witch Hazel PAD* JAR TOPICAL PRN (08:56)
[2019-07-15] MEDS: Ferrous Gluconate TAB* 324 MG TAB PO SCH ×2 (08:58→21:38)
[2019-07-15] MEDS: Docusate CAP* 100 MG PO SCH ×2 (09:00→13:45)
[2019-07-15] MEDS: Docusate LIQ* 100 MG/10 ML UDC PO SCH (21:38)
[2019-07-16] MEDS: Witch Hazel PAD* JAR TOPICAL PRN (01:05)
[2019-07-16] MEDS: Dibucaine 1% 28.35 GM TUBE PR PRN ×2 (01:05→09:00)
[2019-07-16 07:41] LABS: Hematocrit 21 % (35-47); Hemoglobin 6.7 g/dL (12.0-16.0)
[2019-07-16] MEDS: Ferrous Gluconate TAB* 324 MG TAB PO SCH (08:22)
[2019-07-16] MEDS: Docusate LIQ* 100 MG/10 ML UDC PO SCH (09:08)
[2019-07-16 16:52] VITALS: BP 123/66
== END 2019-07-16 15:35 | disposition home or self-care (01) | DRG 560 ==
LOC: MCHOBOUT 20:53 → MCHOB 22:34
PROVIDERS: ADMIT Midwife; ATTEND Advanced Practice Midwife
PROC: 10E0XZZ Delivery of Products of Conception, External Approach (ICD-10-PCS; principal; 2019-07-16)
PROC: 10907ZC Drainage of Amniotic Fluid, Therapeutic from Products of Conception, Via Natural or Artificial Opening (ICD-10-PCS; 2019-07-16)
PROC: 0HQ9XZZ Repair Perineum Skin, External Approach (ICD-10-PCS; 2019-07-16)
PROC: 30233N1 Transfusion of Nonautologous Red Blood Cells into Peripheral Vein, Percutaneous Approach (ICD-10-PCS; 2019-07-16)
DX: O48.0 Post-term pregnancy (principal); Z37.0 Single live birth; O70.0 First degree perineal laceration during delivery; O34.80 Maternal care for other abnormalities of pelvic organs, unspecified trimester; N94.89 Other specified conditions associated with female genital organs and menstrual cycle; O69.81X0 Labor and delivery complicated by cord around neck, without compression, not applicable or unspecified; O90.81 Anemia of the puerperium; D64.9 Anemia, unspecified; Z3A.41 41 weeks gestation of pregnancy
CPT/HCPCS: 36415; 80307; 85014; 85018; 85025; 85461; 86850; 86900; 86901; 86922; A9270-GY; J0694; J2300; J2550; J2590; J2790; P9040